=== PATIENT | male | born 1930 | race Caucasian/White ===

== ENCOUNTER → 2016-06-22 | Outpatient (REF) | payer MEDICARE, OTHER ==
[~2016-06-22] MED LIST: /WARF25TA; ACET65TA; COUM1TAB; LIPI10TA; PERC5TAB8; PREG50CA; PRIL20CA; PRIN20TA3; PRIN5TAB; ZOCO20TA
[2016-06-25 15:25] LABS: Lyme Disease IgG Ab 18 kDa Ban Present (.); Lyme Disease IgG Ab 23 kDa Ban Present (.); Lyme Disease IgG Ab 28 kDa Ban Absent (.); Lyme Disease IgG Ab 30 kDa Ban Absent (.); Lyme Disease IgG Ab 39 kDa Ban Present (.); Lyme Disease IgG Ab 41 kDa Ban Present (.); Lyme Disease IgG Ab 45 kDa Ban Present (.); Lyme Disease IgG Ab 58 kDa Ban Absent (.); Lyme Disease IgG Ab 66 kDa Ban Absent (.); Lyme Disease IgG Ab 93 kDa Ban Absent (.); Lyme Disease IgG West Blot Int Positive (.); Lyme Disease IgG/IgM Antibodie 2.73 ISR (0.00-0.90); Lyme Disease IgM Ab 23 kDa Ban Present (.); Lyme Disease IgM Ab 39 kDa Ban Present (.); Lyme Disease IgM Ab 41 kDa Ban Absent (.); Lyme Disease IgM West Blot Int Positive (.)
== END ==
LOC: M LAB REF 16:25
PROVIDERS: ATTEND Nurse Practitioner Family
DX: R52 Pain, unspecified (principal); A69.20 Lyme disease, unspecified

== ENCOUNTER → 2016-08-24 | Outpatient (REF) | payer MEDICARE, OTHER | LOC: M LAB REF 16:20 | PROVIDERS: ATTEND Nurse Practitioner Family | DX: A69.20 Lyme disease, unspecified (principal) ==

== ENCOUNTER → 2016-12-08 | Outpatient (CLI) | payer MEDICARE, OTHER ==
--- NOTE | 2016-12-08 13:21 | REP ---
Left knee five views: Comparison is 06/2007. There is a total left knee arthroplasty. The components are tightly applied and in satisfactory positions alignment. No evidence of loosening. No joint space narrowing. No effusion. Mineralization is normal. No unusual calcifications or foreign bodies. Impression: Arthroplasty. Otherwise, negative left knee. Signed by Adi Rolon MD 12/08/2016 12:07 P
== END ==
LOC: M WUC 11:11
PROVIDERS: ATTEND Nurse Practitioner Family
DX: M25.562 Pain in left knee (principal); Z96.652 Presence of left artificial knee joint

== ENCOUNTER → 2017-09-13 | Outpatient (CLI) | payer MEDICARE, OTHER ==
[2017-09-13 13:07] LABS: BLOOD UREA NITROGEN 20 MG/DL (7-18)
[2017-09-13 13:07] LABS: CREATININE FOR GFR 1.33 MG/DL (0.70-1.30); GLOMERULAR FILTRATION RATE 54.4 (>35)
== END ==
LOC: M LAB 11:26
DX: R10.9 Unspecified abdominal pain (principal)
CPT/HCPCS: 82565

== ENCOUNTER → 2017-09-14 | Outpatient (CLI) | payer MEDICARE, OTHER ==
[~2017-09-14] MED LIST changes: -/WARF25TA; -ACET65TA; -COUM1TAB; +GASTROGRAFIN SOLUTION 30ML (Q9963) As Ordered; +ISOVUE-370 76% 100ML VIAL (Q9967) As Ordered; -LIPI10TA; -PERC5TAB8; -PREG50CA; -PRIL20CA; -PRIN20TA3; -PRIN5TAB; -ZOCO20TA
== END ==
LOC: M RAD 15:34
DX: R10.9 Unspecified abdominal pain (principal); K43.2 Incisional hernia without obstruction or gangrene; K57.30 Diverticulosis of large intestine without perforation or abscess without bleeding; K40.20 Bilateral inguinal hernia, without obstruction or gangrene, not specified as recurrent
CPT/HCPCS: Q9963

== ENCOUNTER → 2018-03-19 | Outpatient (REF) | payer MEDICARE, OTHER ==
[2018-03-20 13:00] LABS: FERRITIN 10 NG/ML (26-388); IRON (FE) 31 UG/DL (65-175); PERCENT SATURATION 6.5 % (19.7-50.0); TOTAL IRON BINDING CAPACITY 474 UG/DL (250-450)
[2018-03-20 13:13] LABS: VITAMIN B12 LEVEL 369 PG/ML
[2018-03-20 13:15] LABS: FOLATE 12.6 NG/ML
== END ==
LOC: M LAB REF 12:29
DX: D64.9 Anemia, unspecified (principal)
CPT/HCPCS: 82746

== ENCOUNTER 2018-05-04 10:44 | Emergency (ER) | payer MEDICARE, OTHER ==
[~2018-05-04] VITALS: Ht 160 cm; Wt 76.4 kg
[~2018-05-04 10:44] MED LIST changes: +/WARF25TA; +ACET65TA; +COUM1TAB; -GASTROGRAFIN SOLUTION 30ML (Q9963) As Ordered; -ISOVUE-370 76% 100ML VIAL (Q9967) As Ordered; +LIPI10TA; +PERC5TAB8; +PREG50CA; +PRIL20CA; +PRIN20TA3; +PRIN5TAB; +ZOCO20TA
[2018-05-04] MEDS ORDERED: ASPI1TAB PO (11:08)
[2018-05-04] MEDS ORDERED: GLIP10TA6 PO (11:08)
[2018-05-04] MEDS ORDERED: LOSA25TA14 PO (11:08)
[2018-05-04] MEDS ORDERED: FERR1TAB8 PO (11:08)
[2018-05-04] MEDS ORDERED: SERT25TA PO (11:08)
--- NOTE | 2018-05-04 12:05 | REP ---
LEFT FEMUR: Four views. HISTORY: Pain after fall. FINDINGS: Four views of the left femur are obtained. There is old post-traumatic deformity in the femoral neck and intertrochanteric region of the proximal femur on the left. Vascular calcification is observed. 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 A left knee arthroplasty is seen in good position. No acute fracture is seen. IMPRESSION: No acute fracture noted. Old post-traumatic deformity of the proximal femur. Osteoarthritis of the hip. Left knee arthroplasty. Electronically Signed by Wayne Quintero MD 05/04/2018 12:14 P
[2018-05-04 12:13] VITALS: BP 131/74
== END 2018-05-04 12:25 | disposition home or self-care (01) ==
LOC: M ED 10:44
DX: M79.652 Pain in left thigh (principal); M16.12 Unilateral primary osteoarthritis, left hip; K21.9 Gastro-esophageal reflux disease without esophagitis; Z79.899 Other long term (current) drug therapy; Z79.82 Long term (current) use of aspirin; Z88.5 Allergy status to narcotic agent

== ENCOUNTER → 2018-05-24 | Outpatient (CLI) | payer MEDICARE, OTHER ==
[~2018-05-24] MED LIST changes: +ASPI1TAB PO; +FERR1TAB8 PO; +GLIP10TA6 PO; +LOSA25TA14 PO; +SERT25TA PO
--- NOTE | 2018-05-24 12:49 | REP ---
MRI LEFT FEMUR: Multiple sequences obtained in the axial, coronal, and sagittal planes without the use of intravenous contrast. Metallic prosthesis at the left knee causes blooming artifact which obscures the very distal end of the femur and limits its evaluation. However, the more proximal femoral shaft as well as the proximal end of the left femur demonstrates normal marrow signal. There is no bone marrow edema or occult fracture. Soft tissues of the thigh demonstrate no abnormal signal or fluid collection. There does not appear to be a significant joint effusion at the hip. IMPRESSION: Essentially unremarkable MRI left femur with no evidence of occult fracture. Metallic knee prosthesis limits evaluation of the distal end of the left femur. Electronically Signed by Adi Workman MD 05/24/2018 03:49 P
== END ==
LOC: M RAD 09:53
PROVIDERS: ATTEND Orthopaedic Surgery
DX: M79.652 Pain in left thigh (principal)

== ENCOUNTER → 2018-05-25 | Outpatient (CLI) | payer MEDICARE, OTHER ==
--- NOTE | 2018-05-25 13:37 | REP ---
Three-phase bone scan of the knees and lower extremities: History: Pain in the left thigh. Status post left knee arthroplasty in April 2008. Technique: 22.0 mCi technetium 99m MDP is injected and standard three-phase images are acquired. Scintigraphic findings: Anterior and posterior flow study is normal. Blood pool images demonstrate photopenia related to the left knee arthroplasty. There is early uptake in the medial compartment right knee consistent with less osteoarthritis. Delayed scan images demonstrate expected prosthetic bone interface uptake associated with the left knee arthroplasty components. Osteoarthritic uptake is seen in the right knee particularly medially but also in the patellofemoral and lateral compartments. The osteoarthritic uptake is more pronounced today than it was on September 07, 2009 prior study. The bone prosthetic interface uptake is less pronounced in the left knee. Delayed images of the proximal thighs and hips show mild arthritic uptake in the hips bilaterally, right a little more prominently than left. Impression: No acute abnormality. Arthroplasty prosthetic component associated uptake again noted in the left knee. Osteoarthritic uptake medial compartment right knee. Minimal arthritic uptake in the hips. Electronically Signed by Wayne Quintero MD 05/25/2018 01:43 P
== END ==
LOC: M RAD 08:06
PROVIDERS: ATTEND Orthopaedic Surgery
DX: M79.652 Pain in left thigh (principal); Z96.652 Presence of left artificial knee joint
CPT/HCPCS: 78315; A9503

== ENCOUNTER → 2018-06-13 | Outpatient (REF) | payer MEDICARE, OTHER ==
[2018-06-13 12:56] LABS: BASO % 0.3 % (0.0-1.0); EOS # 0.1 10^3/uL (0.0-0.50); EOS % 1.3 % (0.0-3.0); HEMATOCRIT 41.8 % (42.0-52.0); HEMOGLOBIN 13.2 g/dl (13.5-17.5); LYMPH # 1.5 10^3/uL (1.5-4.5); LYMPH % 21.6 % (24.0-44.0); MEAN CORPUSCULAR HEMOGLOBIN 26.3 pg (27.0-33.0); MEAN CORPUSCULAR HGB CONC 31.6 g/dl (32.0-36.5); MEAN CORPUSCULAR VOLUME 83.4 fl (80.0-96.0); MONO # 0.4 10^3/uL (0.0-0.8); MONO % 5.4 % (0.0-5.0); NEUTROPHILS # 4.8 10^3/uL (1.8-7.7); NEUTROPHILS % 70.2 % (36.0-66.0); PLATELET COUNT, AUTOMATED 201 10^3/uL (150-450); RED BLOOD COUNT 5.01 10^6/uL (4.30-6.10); WHITE BLOOD COUNT 6.8 10^3/uL (4.0-10.0)
[2018-06-13 14:09] LABS: ERYTHROCYTE SEDIMENTATION RATE 30 mm/hr (0-30)
== END ==
LOC: M LABDRAW1 10:19
PROVIDERS: ATTEND Orthopaedic Surgery
DX: Z96.652 Presence of left artificial knee joint (principal)

== ENCOUNTER → 2018-07-06 | Outpatient (CLI) | payer MEDICARE, OTHER ==
--- NOTE | 2018-07-06 12:29 | REP ---
MRI LUMBAR SPINE WITHOUT CONTRAST: HISTORY: Back pain. A rudimentary disc is present at the S1-2 level. Decreased signal intensity on T2-weighted images is present in the T11-12 through L5-S1 intervertebral discs. The discs are decreased in height. These findings are consistent with disc degeneration. A diffuse disc bulge is present at the L1-2 level. There is minimal compression of the thecal sac. There is hypertrophy of the posterior articulating facets. The L1 nerves exit the neural foramina without compression. A diffuse disc bulge is present at the L2-3 level. There is hypertrophy of the ligamenta flava and posterior articulating facets. These findings produce mild central canal stenosis. The L2 nerves exit the neural foramina without compression. A diffuse disc bulge and small left paracentral disc protrusion are present at the L3-4 level. There is hypertrophy of the ligamenta flava and posterior articulating facets. These findings produce mild central canal stenosis. There is compression of the left L3 nerve in the neural foramen. The right L3 nerve exits the neural foramen without compression. A diffuse disc bulge is present at the L4-5 level. There is hypertrophy of the ligamenta flava and posterior articulating facets. These findings produce mild central canal stenosis. There is compression of the right L4 nerve in the neural foramen. The left L4 nerve exits the neural foramen without compression. A diffuse disc bulge and small central disc protrusion are present at the L5-S1 level. There is minimal compression of the thecal sac. There is hypertrophy of the posterior articulating facets. There is compression of the right L5 nerve in the neural foramen. The conus medullaris is normal in appearance terminating at the level of the T12-L1 intervertebral disc. Normal signal intensity is present in the lumbar vertebral bodies. There is scoliosis convex to the right. IMPRESSION: 1. Diffuse disc bulge at the L1-2 level with minimal thecal sac compression. 2. Mild central canal stenosis at the L2-3 and L4-5 levels secondary to disc bulge, ligamentous and facet hypertrophy. There is compression of the right L4 nerve in the neural foramen. 3. Mild central canal stenosis at the L3-4 level secondary to disc bulge, disc protrusion, ligamentous and facet hypertrophy. There is compression of the left L3 nerve in the neural foramen. 4. Diffuse disc bulge and small central disc protrusion at the L5-S1 level with minimal thecal sac compression. There is compression of the right L5 nerve in the neural foramen. Electronically Signed by Damion Irvin MD 07/06/2018 12:37 P
== END ==
LOC: M RAD 11:05
PROVIDERS: ATTEND Orthopaedic Surgery
DX: M51.26 Other intervertebral disc displacement, lumbar region (principal); M48.061 Spinal stenosis, lumbar region without neurogenic claudication

== ENCOUNTER → 2018-07-27 | Outpatient (REF) | payer MEDICARE, OTHER ==
[~2018-07-27] MED LIST changes: -/WARF25TA; -ASPI1TAB PO; +ASPI81TA26 PO; +COUM1TAB18; -SERT25TA PO; +SERT25TA85 PO
[2018-07-27 18:15] LABS: INR 0.98; PROTHROMBIN TIME 13.1 SECONDS (12.1-14.4)
[2018-07-27 18:16] LABS: PARTIAL THROMBOPLASTIN TIME 29.2 SECONDS (25.4-37.6)
== END ==
LOC: M LABDRAW1 16:09
PROVIDERS: ATTEND Physical Medicine & Rehabilitation
DX: M47.896 Other spondylosis, lumbar region (principal); M48.061 Spinal stenosis, lumbar region without neurogenic claudication

== ENCOUNTER → 2019-09-06 | Outpatient (CLI) | payer MEDICARE, OTHER | LOC: M LABSMTC 13:16 | PROVIDERS: ATTEND Family Medicine | DX: Z11.59 Encounter for screening for other viral diseases (principal) | CPT/HCPCS: C9803; U0003 ==

== ENCOUNTER → 2019-09-26 | Outpatient (REF) | payer MEDICARE, OTHER ==
[2019-09-28 08:09] LABS: LDL DIRECT 105 mg/dL (0-99)
== END ==
LOC: M LAB REF 16:53
PROVIDERS: ATTEND Internal Medicine
DX: E78.1 Pure hyperglyceridemia (principal); E78.00 Pure hypercholesterolemia, unspecified

== ENCOUNTER 2020-05-29 19:54 | Inpatient (IN) | payer MEDICARE, OTHER ==
[~2020-05-29] VITALS: Ht 157.5 cm; Wt 80.9 kg
--- NOTE | 2020-05-29 21:03 | REPVR ---
PROCEDURE INFORMATION: Exam: CT Head Without Contrast Exam date and time: 05/29/2020 8:56 PM Age: 89 years old Clinical indication: Injury or trauma; Fall; Blunt trauma (contusions or hematomas); Consciousness not specified TECHNIQUE: Imaging protocol: Computed tomography of the head without contrast. Radiation optimization: All CT scans at this facility use at least one of these dose optimization techniques: automated exposure control; mA and/or kV adjustment per patient size (includes targeted exams where dose is matched to clinical indication); or iterative reconstruction. COMPARISON: No relevant prior studies available. FINDINGS: Brain: There are global involutional changes of the brain which are in keeping with the patient's age. Periventricular hypodensities are nonspecific but most likely reflect chronic microvascular ischemic disease. There is no evidence of intracranial hemorrhage. No abnormal extra-axial fluid collections are identified. No mass effect or midline shift is seen. Workman-white differentiation is preserved throughout. Cerebral ventricles: No ventriculomegaly. Bones/joints: Unremarkable. No acute fracture. Paranasal sinuses: The visualized sinuses are unremarkable. Mastoid air cells: There is no mastoid effusion detected. Vasculature: Atherosclerotic vascular disease is noted at the level of the skull base. Soft tissues: Unremarkable. IMPRESSION: 1. No acute intracranial hemorrhage, mass or midline shift. 2. Involutional changes of the brain in keeping with the patient's age, with findings of chronic microvascular ischemic disease. Electronically signed by: Estefania Garcia On 05/29/2020 21:02:36 PM
--- NOTE | 2020-05-29 21:04 | REPVR ---
PROCEDURE INFORMATION: Exam: XR Left Hip with Pelvis when Performed Exam date and time: 05/29/2020 8:44 PM Age: 89 years old Clinical indication: Other: Trauma TECHNIQUE: Imaging protocol: XR Left hip with pelvis when performed. Views: 2 or 3 views. COMPARISON: CT ABD PELVIS W/O FOL BY WIT 09/14/2017 5:00 PM ; left femur radiograph 05/04/2018. FINDINGS: Bones/joints: There is an acute nondisplaced fracture of the left femoral neck. There is a bony excrescence emanating from the medial aspect of the left femoral neck, unchanged compared to a prior femur radiograph performed on 05/04/2018. This is likely secondary to an osteochondroma or the sequelae of old trauma. Mild osteoarthritis of the left hip joint. Severe osteoarthritis of the right hip joint. Degenerative spondylosis of the lumbar spine. The sacroiliac joints and pubic symphysis are intact. Bone density is normal. Soft tissues: Unremarkable. IMPRESSION: 1. Acute nondisplaced fracture of the left femoral neck. 2. Bone excrescence at the medial aspect of the left femoral neck, likely osteochondroma (versus the sequelae of old trauma). Electronically signed by: Jarrell He On 05/29/2020 21:04:53 PM
--- NOTE | 2020-05-29 21:08 | REPVR ---
PROCEDURE INFORMATION: Exam: CT Cervical Spine Without Contrast Exam date and time: 05/29/2020 8:56 PM Age: 89 years old Clinical indication: Injury or trauma; Fall; Blunt trauma TECHNIQUE: Imaging protocol: Computed tomography images of the cervical spine without contrast. Radiation optimization: All CT scans at this facility use at least one of these dose optimization techniques: automated exposure control; mA and/or kV adjustment per patient size (includes targeted exams where dose is matched to clinical indication); or iterative reconstruction. COMPARISON: No relevant prior studies available. FINDINGS: Bones/joints: No anterior wedging deformity. No acute lucent fracture lines visualized. No destructive osseous lesions are seen. There is slight anterolisthesis at C4-C5 and C7-T1. There is diffuse cervical facet arthropathy. Spondylitic changes are most prominent at the C3-C4 through C6-C7 levels. Discs/Spinal canal/Neural foramina: No severe central canal stenosis demonstrated by CT. Neural foraminal stenosis is seen on the right at C2-C3 and C3-C4, eccentric to the left at C4-C5 and C5-C6, bilaterally at C6-C7. Lungs: Lung apices are normal. IMPRESSION: 1. No acute cervical spinal injury demonstrated by CT. 2. Degenerative changes of the cervical spine, as above. Electronically signed by: Estefania Garcia On 05/29/2020 21:07:50 PM
--- NOTE | 2020-05-29 21:10 | REPVR ---
PROCEDURE INFORMATION: Exam: XR Left Femur Exam date and time: 05/29/2020 8:44 PM Age: 89 years old Clinical indication: Other: Trauma TECHNIQUE: Imaging protocol: XR Left femur. Views: 2 views. COMPARISON: MRI FEMUR WITHOUT CONTRAST 05/24/2018 10:18 AM FINDINGS: Bones/joints: Nondisplaced impacted fracture of the left femoral neck. There is a bony excrescence at the medial aspect of the left femoral neck, likely an osteochondroma. There is mild osteoarthritis of the left hip joint. A left total knee prosthesis is present without evidence of instrumentation failure. The tip of the tibial stem is not visualized. Soft tissues: Unremarkable. IMPRESSION: 1. Nondisplaced impacted fracture of the left femoral neck. 2. Unremarkable left total knee arthroplasty. Electronically signed by: Jarrell He On 05/29/2020 21:09:43 PM
[2020-05-29] MEDS ORDERED: ACETAMINOPHEN *IV* 1,000 MG in IV 1 EA IV ONE (21:30)
--- NOTE | 2020-05-29 21:48 | REPVR ---
PROCEDURE INFORMATION: Exam: XR Chest, 1 View Exam date and time: 05/29/2020 9:36 PM Age: 89 years old Clinical indication: Chest pain; Additional info: Preop TECHNIQUE: Imaging protocol: XR of the chest Views: 1 view. COMPARISON: No relevant prior studies available. FINDINGS: Lungs: Unremarkable. No consolidation. Pleural spaces: Unremarkable. No pleural effusion. No pneumothorax. Heart/Mediastinum: Unremarkable. No cardiomegaly. Bones/joints: No acute bone or joint abnormality. IMPRESSION: No acute findings. Electronically signed by: Jarrell He On 05/29/2020 21:48:02 PM
[2020-05-29 22:03] LABS: BASO % 0.2 % (0.0-1.0); EOS # 0.1 10^3/uL (0.0-0.5); EOS % 1.1 % (0.0-3.0); HEMOGLOBIN 11.9 g/dl (13.5-17.5); LYMPH # 1.9 10^3/uL (1.5-5.0); LYMPH % 21.1 % (24.0-44.0); MEAN CORPUSCULAR HEMOGLOBIN 24.5 pg (27.0-33.0); MEAN CORPUSCULAR HGB CONC 30.5 g/dl (32.0-36.5); MEAN CORPUSCULAR VOLUME 80.4 fl (80.0-96.0); MONO # 0.6 10^3/uL (0.0-0.8); MONO % 6.1 % (0.0-5.0); NEUTROPHILS # 6.4 10^3/uL (1.5-8.5); NEUTROPHILS % 70.3 % (36.0-66.0); PLATELET COUNT, AUTOMATED 183 10^3/uL (150-450); RED BLOOD COUNT 4.85 10^6/uL (4.30-6.10); WHITE BLOOD COUNT 9.1 10^3/uL (4.0-10.0)
[2020-05-29 22:29] LABS: ALBUMIN 3.5 GM/DL (3.2-5.2); ALT/SGPT 69 U/L (12-78); BILIRUBIN,TOTAL 0.3 MG/DL (0.2-1.0); BLOOD UREA NITROGEN 16 MG/DL (7-18); CALCIUM LEVEL 8.6 MG/DL (8.8-10.2); CARBON DIOXIDE LEVEL 28 MEQ/L (21-32); CHLORIDE LEVEL 103 MEQ/L (98-107); CK-MB VALUE MASS 4.4 NG/ML (<3.6); CPK CREATINE PHOSPHOKINASE 112 U/L (39-308); CREATININE FOR GFR 1.28 MG/DL (0.70-1.30); GLOMERULAR FILTRATION RATE 56.6 (>35); GLUCOSE, FASTING 164 MG/DL (70-100); MB/CK RELATIVE INDEX 3.93 (< OR =4); POTASSIUM SERUM 4.2 MEQ/L (3.5-5.1); SODIUM LEVEL 140 MEQ/L (136-145); TOTAL PROTEIN 6.9 GM/DL (6.4-8.2); TROPONIN I < 0.02 NG/ML (< 0.10)
[2020-05-30 00:14] LABS: RSV AMPLIFICATION NEGATIVE (NEGATIVE)
[2020-05-30] MEDS ORDERED: GLIP10TA18 PO (00:14)
[2020-05-30] MEDS ORDERED: OMEP-218 PO (00:14)
[2020-05-30] MEDS ORDERED: LISI20TA33 PO (00:14)
--- NOTE | 2020-05-30 02:18 | REPVR ---
PROCEDURE INFORMATION: Exam: CT Left Lower Extremity Without Contrast, Hip Exam date and time: 05/30/2020 1:37 AM Age: 89 years old Clinical indication: Pain; Hip; Left; Additional info: Suspicious lesion, known fracture, request thin slices TECHNIQUE: Imaging protocol: CT of the Left lower extremity without contrast was performed. Exam focused on the hip. Radiation optimization: All CT scans at this facility use at least one of these dose optimization techniques: automated exposure control; mA and/or kV adjustment per patient size (includes targeted exams where dose is matched to clinical indication); or iterative reconstruction. COMPARISON: CR Hip,AP,LAT to include Pelvis 05/29/2020 8:28 PM FINDINGS: Bones/joints: There is some proliferative changes about the posterior aspect of the left femoral neck. There is a nondisplaced fracture through the femoral neck extending to the subcapital region anteriorly and through the transcervical to basicervical region posteriorly. There is some impaction in the subcapital region laterally. Soft tissues: Slight subcutaneous infiltration lateral to the proximal left femur. Bowel: Fat filled left inguinal hernia with bowel extending just into the orifice. IMPRESSION: 1. Osseous proliferative changes about the left femoral neck with a nondisplaced left femoral neck fracture with slight impaction laterally. 2. Small fat filled left inguinal hernia. Electronically signed by: Misael Jay On 05/30/2020 02:18:45 AM
[2020-05-30] MEDS ORDERED: DEXTROSE 50% 50 ML SYRINGE IV PRN (02:45)
[2020-05-30] MEDS ORDERED: GLUCOSE 4GM CHEW TABLET PO PRN (02:45)
[2020-05-30] MEDS ORDERED: GLUCAGON INJ 1MG VIAL SC PRN (02:45)
[2020-05-30] MEDS: traMADol 50 MG TAB PO PRN ×2 (03:55→17:34)
--- NOTE | 2020-05-30 04:50 | HPEPDOC ---
General Date of Admission Date of Service: May 30, 2020 Primary Care Physician: Leesa Bardales Attending Physician: Santiago Hobbs MD Chief Complaint The patient is a 89-year-old male admitted with a reason for visit of FALL. Source: Patient Exam Limitations: Hard of hearing History of Present Illness Mr. Dejesus was carrying a stack of dishes from his dining room into his kitchen to be washed when he lost his balance and fell to his right side. During the fall he landed on his left hip and does think he might of bumped his head but he did not lose consciousness. After the fall he had significant pain in his left hip/groin. He was brought to the emergency department for further evaluation and treatment. Home Medications Scheduled Aspirin (Aspirin EC) 81 Mg Tab, 81 MG PO DAILY, (Reported) Glipizide (Glipizide ER) 10 Mg Tab.er.24, 10 MG PO DAILY, (Reported) Lisinopril (Lisinopril) 20 Mg Tablet, 20 MG PO DAILY, (Reported) Losartan Potassium (Losartan Potassium) 25 Mg Tab, 25 MG PO DAILY, (Reported) Omeprazole (Omeprazole) 20 Mg Capsule.dr, 20 MG PO DAILY, (Reported) Sertraline Hcl (Sertraline HCl) 25 Mg Tab, 25 MG PO DAILY, (Reported) Allergies Coded Allergies: morphine (Verified Adverse Reaction, Stefanie, kleber, 05/29/20) Past Medical History Medical History Obstructive sleep apnea, palliated with BiPAP 12/28 with the backup of 5 Hypertension Type 2 diabetes Depression/extended grief reaction GERD History of colon cancer Surgical History Cholecystectomy Hernia repair Colon resection 2 Left total knee arthroplasty (2007) Nasoseptoplasty Family History Significant Family History: Noncontributory (secondary to advanced age) His father of "heart problems". His mother of complications of diabetes. His son last year of a myocardial infarction. Social History * Smoker: non-smoker Alcohol: rarely (he reports one beer every 6 months) He lives in a 2 level home at present A-FIB/CHADSVASC A-FIB History Current/History of A-Fib/PAF?: No Current PO Anticoag Therapy: No Review of Systems Pulmonary: Denies: Dyspnea, Cough Cardiovascular: Denies: Chest Pain, Palpitations, Orthopnea Gastrointestinal: Denies: Nausea, Abdominal Pain, Diarrhea Hematologic: Denies: Bruising, Bleeding Excessively Musculoskeletal: Reports: Leg Pain (left hip/groin area radiating down his thigh) Psych: Reports: Mood Normal Physical Examination General Exam: Positive: Alert, Cooperative, No Acute Distress (he is laying in his ER stretcher when I enter the room. He is comfortable unless he tries to move then he has significant left hip pain) Eye Exam: Positive: PERRLA, EOMI; Negative: Sclera icteric ENT Exam: Positive: Atraumatic, Mucous membr. moist/pink, Pharynx Normal Neck Exam: Positive: Supple; Negative: Lymphadenopathy Chest Exam: Positive: Clear to auscultation, Normal air movement Heart Exam: Positive: Rate Normal, Regular Rhythm, Normal S1, Normal S2 Abdomen Exam: Positive: Normal bowel sounds, Soft; Negative: Tenderness Extremity Exam: Positive: Normal pulses, Tenderness (palpation over the left greater trochanter and along the inguinal fold.There are no bulges noted.); Negative: Cyanosis, Edema Skin Exam: Positive: Nl turgor and temperature; Negative: Breakdown, Lesion Neuro Exam: Positive: Normal Speech, Sensation Intact Psych Exam: Positive: Mental status NL, Mood NL, Oriented x 3 Vital Signs Vital Signs Date Time Temp Pulse Resp B/P (MAP) Pulse Ox O2 Delivery O2 Flow Rate FiO2 05/30/20 04:33 16 05/30/20 04:00 98.3 77 172/81 (111) 94 Laboratory Data Labs 24H Laboratory Tests 2 05/29/20 21:25: Immature Granulocyte % (Auto) 1.2, Neutrophils (%) (Auto) 70.3H, Lymphocytes (%) (Auto) 21.1L, Monocytes (%) (Auto) 6.1H, Eosinophils (%) (Auto) 1.1, Basophils (%) (Auto) 0.2, Neutrophils # (Auto) 6.4, Lymphocytes # (Auto) 1.9, Monocytes # (Auto) 0.6, Eosinophils # (Auto) 0.1, Basophils # (Auto) 0.0, Nucleated Red Blood Cells % (auto) 0.0, Anion Gap 9, Glomerular Filtration Rate 56.6, Calcium Level 8.6L, Total Bilirubin 0.3, Aspartate Amino Transf (AST/SGOT) 42H, Alanine Aminotransferase (ALT/SGPT) 69, Alkaline Phosphatase 127H, Total Creatine Kinase 112, Creatine Kinase MB 4.4H, Creatine Kinase MB Relative Index 3.93, Troponin I < 0.02, Total Protein 6.9, Albumin 3.5, Albumin/Globulin Ratio 1.0 05/29/20 23:20: Coronavirus (COVID-19)(PCR) NEGATIVE, Influenza Type A (RT-PCR) NEGATIVE, Influenza Type B (RT-PCR) NEGATIVE, Respiratory Syncytial Virus (PCR) NEGATIVE CBC/BMP Laboratory Tests 05/29/20 21:25 Problems (1) Closed left hip fracture Problem Specific Plan: Consult Specialist Problem Text: I spoke directly with Dr. Rodriguez, the on-call orthopedist. He is concerned that this fracture may be a pathalogic fracture. Some components of it do not look right to him on the x-ray. He is concerned that, with Mr. Dejesus's history of colon cancer, that this may represent a metastasis. He is understandably cautious about taking him to the OR where he may be accidentally spreading metastatic (or even primary) cancer. He is also concerned that Mr. Dejesus may not tolerate a two step procedure well; that is he takes him to the OR for a bone biopsy, then takes him back for a repair if the pathology is ok. He was suggesting a metabolic evaluation for occult malignancy as well as imaging to include a total body bone scan and CT of the chest, abdomen and pelvis. We may also ask interventional radiology to see if the can obtain a sample of the lesion for pathologic diagnosis. He will follow along, and if it all checks out he will do the needed fixation. In the mean time we need to keep Mr Dejesus as comfortable as we can. He has adverse reaction of bradycardia listed to morphine. I discussed this with pharmacy and we decided to use tramadol first as the pharmacore is quite different from morphine and there is not likely much cross reactivity. If that is not able to control his pain adequately hydrocodone or oxycodone may be the next best options as they have some functional groups that are quite different from morphine too. Update: I spoke with Dr. Rodriguez again later in the evening. 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 Based on this, Dr. Rodriguez withdrew his suggestion that we do CT chest/abdomen/pelvis or consult IR at this time. We will proceed with serum based testing to try to rule out a recurrence of his colon cancer as best as we can. If we don't find anything of concern, he will plan to take the patient to the OR on 05/31. (2) History of colon cancer Problem Text: He has a remote history of colon cancer. It seems that this was treated with with resection and not with chemotherapy or radiation, however, I'm not sure how reliable the patient's recall of this critical portion of his history is at this moment in time. (3) DENISE treated with BiPAP Status: Chronic Problem Text: We will continue his home BiPAP settings. It is important to use this when he sleeps even during the day because we're giving him potentially sedating pain medications which could also decrease his respiratory drive. Anesthesia should be aware that he has this diagnosis. (4) DMII (diabetes mellitus, type 2) Status: Chronic Problem Text: We will hold his home medication of glipizide and do Accu-Cheks before meals and at bedtime with an insulin sliding scale while in the hospital. (5) HTN (hypertension) Status: Chronic Problem Text: His blood pressure currently well controlled. I did note that his home medication list includes both losartan and lisinopril. When we checked the external history lisinopril was not present. I think it's inclusion on his home medication list is probably an error. I have only continued him on losartan for now. If his blood pressure becomes elevated we may want to consider whether he needs an increase of his losartan dose or possibly to add the lisinopril back in. 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 No treatment is needed at this time. We'll monitor. If his hemoglobin starts dropping he may have bleeding around the fracture site and we may need to consider doing something different at that point in time. (7) GERD (gastroesophageal reflux disease) Status: Chronic Problem Text: Continue his current home medications, monitor. (8) Atypical depressive disorder Problem Text: He reports the sertraline was started after the of his son a year ago, but that his and physician thought it wouldn't hurt him and he should continue it. I'm not clear on whether reaction carries diagnoses of depression or whether this is an extended grief reaction. Regardless I will order his current home medications and he can continue to follow up on an outpatient basis. Plan / VTE VTE Prophylaxis Ordered?: Yes VTE Exclusion Pharmacological: Other (potential for one or more procedures in the very near future) Plan Advanced Directives: Health Care Proxy (HCP) (he identifies his Veena Dejesus as his alternate decision maker should he not be able to make his own medical decisions. He expressed a wish to be DNR on admission, however, when we got to filling out the MOLST form he decided he would wait to formalize that until he could talk with his and son.) Santiago Hobbs MD May 30, 2020 04:50
[2020-05-30 05:00] VITALS: BP 133/71
[2020-05-30] MEDS: HumaLOG INSULIN (NovoLOG) PER UNIT SC SCH ×4 (09:03→21:00)
[2020-05-30] MEDS: LOSARTAN 25 MG TAB PO SCH (09:04)
[2020-05-30] MEDS: DOCUSATE SODIUM 100MG CAPSULE PO SCH ×2 (09:04→21:04)
[2020-05-30] MEDS: SERTRALINE HCL 25 MG TABLET PO SCH (09:04)
[2020-05-30] MEDS: OMEPRAZOLE 20 MG CAP PO SCH (09:04)
[2020-05-30 09:28] LABS: BASO % 0.4 % (0.0-1.0); EOS # 0.2 10^3/uL (0.0-0.5); EOS % 2.1 % (0.0-3.0); HEMATOCRIT 37.8 % (42.0-52.0); HEMOGLOBIN 11.9 g/dl (13.5-17.5); LYMPH # 1.9 10^3/uL (1.5-5.0); LYMPH % 21.2 % (24.0-44.0); MEAN CORPUSCULAR HEMOGLOBIN 24.9 pg (27.0-33.0); MEAN CORPUSCULAR HGB CONC 31.5 g/dl (32.0-36.5); MEAN CORPUSCULAR VOLUME 79.2 fl (80.0-96.0); MONO # 0.5 10^3/uL (0.0-0.8); NEUTROPHILS # 6.2 10^3/uL (1.5-8.5); NEUTROPHILS % 69.9 % (36.0-66.0); PLATELET COUNT, AUTOMATED 176 10^3/uL (150-450); RED BLOOD COUNT 4.77 10^6/uL (4.30-6.10); WHITE BLOOD COUNT 8.9 10^3/uL (4.0-10.0)
[2020-05-30 10:13] LABS: ALBUMIN 3.4 GM/DL (3.2-5.2); BILIRUBIN,TOTAL 0.6 MG/DL (0.2-1.0); CALCIUM LEVEL 8.7 MG/DL (8.8-10.2); CREATININE FOR GFR 1.23 MG/DL (0.70-1.30); GLOMERULAR FILTRATION RATE 59.3 (>35); MAGNESIUM LEVEL 1.6 MG/DL (1.8-2.4); POTASSIUM SERUM 4.4 MEQ/L (3.5-5.1); TOTAL PROTEIN 6.8 GM/DL (6.4-8.2)
--- NOTE | 2020-05-30 12:29 | IPNPDOC ---
Text Note Date of Service The patient was seen on 05/30/20. NOTE Subjective: Patient stated that he has left hip pain, denies fever, chills, na usea, vomiting, diarrhea or dysuria. Objective: GENERAL APPEARANCE: NAD HEENT: no scleral icterus, no JVD, EOMI CARDIOVASCULAR: S1S2 LUNGS: Diminished lung sounds bilaterally ABDOMEN: soft & not tender w palpitation MUSCULOSKELETAL: no cyanosis, no swelling, pulsation intact, tenderness over left hip INTEGUMENT: no generalized pallor NEUROLOGICAL: cranial nerve function from 2-12 intact intact, follows commands, speech not dysarthric Assessment plan Mr. Dejesus was carrying a stack of dishes from his dining room into his kitchen to be washed when he lost his balance and fell to his right side. During the fall he landed on his left hip and does think he might of bumped his head but he did not lose consciousness. After the fall he had significant pain in his left hip/groin. He was brought to the emergency department for further evaluation and treatment. 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, unlikely metastases Will check CEA DENISE treated with BiPAP Continuing treatment with BiPAP overnight Type 2 diabetes Diabetes diet Insulin sliding scale Hypertension Continue home meds Anemia of chronic diseases Hemoglobin stable Follow-up with PCP in the outpatient settings Will check stool for occult blood Deconditioning Secondary to hip fracture PT/OT Depression Continue home meds GERD Continue PPI VS,Fishbone, I+O VS, Fishbone, I+O Laboratory Tests 05/29/20 21:25 05/30/20 08:53 Vital Signs Date Time Temp Pulse Resp B/P (MAP) Pulse Ox O2 Delivery O2 Flow Rate FiO2 05/30/20 09:04 134/74 05/30/20 05:00 98.1 75 18 96 Room Air I&O- Last 24 Hours up to 6 AM 05/30/20 06:00 Intake Total 400 ml Balance 400 ml MARINO MEJIAS DO May 30, 2020 12:29
[2020-05-30] MEDS ORDERED: NS 1,000 ML IV SCH (12:30)
--- NOTE | 2020-05-30 12:43 | ECGEPIP ---
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
--- NOTE | 2020-05-30 12:45 | ECGEPIP ---
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
--- NOTE | 2020-05-30 13:46 | ER ---
ER CONSULTATION DATE: 05/30/2020 TIME: 12:01 a.m. CONSULTING SERVICE: Orthopedic surgery. CONSULTING PHYSICIAN: Dusty Rodriguez MD. HISTORY OF PRESENT ILLNESS: This is an 89-year-old male who is a community ambulator with assistive devices (walker) who was washing dishes and landed on his left hip on the lexi of May 29, 2020. He was admitted to [facility] for further evaluation and treatment. Patient has a Steel Fitter 2 complete, but nondisplaced, femoral neck fracture of the left hip. Orthopedic surgery was consulted for further evaluation and treatment of the patient's fracture. Patient was admitted by the hospitalist to manage his medical comorbidities. PAST MEDICAL HISTORY: Patient has a history most notable for: 1. Lumbago. 2. Diverticulitis, colon. 3. Hypertension. 4. Sleep apnea. 5. Type 2 diabetes without complications. 6. Benign neoplasm of transverse colon. 7. Hernia. 8. Anemia. 9. Esophageal reflux. PAST SURGICAL HISTORY: Includes: 1. Colon resection secondary to cancer, according to patient. 2. Cholecystectomy. 3. Hernia repair. 4. Deviated septum correction. ALLERGIES TO MEDICATIONS: Patient denies. MEDICATIONS: Please see hospitalist note. SOCIAL HISTORY: Nondrinker, nonsmoker, not an IV drug user. PHYSICAL EXAMINATION: Patient is alert to person, time and place. LEFT LOWER EXTREMITY: Patient had presented with left hip flexion, abduction and external rotation upon presentation. He was otherwise neurovascularly intact to the left lower extremity. He had 2+ dorsalis pedis and posterior tibial arterial pulse, 5/5 motor strength to the exterior hallucis longus (EHL), flexor hallucis longus (FHL), gastroc soleus and peroneal musculature. He had sensation intact to light touch to the deep and superficial peroneal, sural, saphenous and tibial nerve distributions. RADIOGRAPHS: Patient's AP pelvis radiograph and left hip radiograph demonstrate Green 2 complete, but nondisplaced femoral neck fracture. Patient does have some atypical osseus findings on the left hip radiograph to include potential previous trauma to the left hip, potential slipped capital femoral epiphysis (SCFE) of the left hip as well as possible metastatic or other possible neoplastic process of the left hip. IMPRESSION: An 89-year-old male with a traumatic versus pathologic femoral neck fracture. PLAN: At this point in time, the patient will eventually need a closed reduction and percutaneous screw reduction of the left hip; however, I would like to get some better characterization of the patient's pathologic versus traumatic etiology of the hip fracture. At this point in time, we will obtain a left hip CT scan to identify whether this lesion looks pathologic or chronic. Previous CT scan two years prior demonstrates similar osseus structure of the left hip, so it is likely not a pathologic fracture. However, we will proceed down the pathologic workup to ensure this is not a metastatic fracture or possibly a primary bone tumor. If his left CT scan of the left hip looks unconcerning, we will proceed with closed reduction and percutaneous screw fixation of the left hip. If the CT scan does look concerning, we will likely proceed with a CT scan of the abdomen and pelvis and chest for identifying other possible metastatic disease. I did talk to the hospitalist this afternoon and hopefully the patient will be cleared for surgery on the morning of May 31, 2020.
[2020-05-30 14:00] VITALS: BP 137/74
[2020-05-30] MEDS: ACETAMINOPHEN TAB 650MG DOSE (2X325MG) PO PRN (17:34)
[2020-05-30 22:00] VITALS: BP 156/82
[2020-05-31] VITALS (8 sets, daily range): BP systolic 127–160; BP diastolic 73–96
[2020-05-31] MEDS: traMADol 50 MG TAB PO PRN ×2 (03:14→17:33)
[2020-05-31] MEDS: ceFAZolin SOD 2 GM in IV 1 EA IV ONE ×2 (06:00→11:10)
[2020-05-31 06:48] LABS: HEMATOCRIT 40.7 % (42.0-52.0); HEMOGLOBIN 12.6 g/dl (13.5-17.5); MEAN CORPUSCULAR HEMOGLOBIN 24.7 pg (27.0-33.0); MEAN CORPUSCULAR VOLUME 79.8 fl (80.0-96.0); PLATELET COUNT, AUTOMATED 160 10^3/uL (150-450); WHITE BLOOD COUNT 9.6 10^3/uL (4.0-10.0)
[2020-05-31 07:12] LABS: BLOOD UREA NITROGEN 15 MG/DL (7-18); CALCIUM LEVEL 8.6 MG/DL (8.8-10.2); CARBON DIOXIDE LEVEL 28 MEQ/L (21-32); CHLORIDE LEVEL 101 MEQ/L (98-107); CREATININE FOR GFR 1.19 MG/DL (0.70-1.30); GLOMERULAR FILTRATION RATE > 60.0 (>35); GLUCOSE, FASTING 168 MG/DL (70-100); POTASSIUM SERUM 4.4 MEQ/L (3.5-5.1); SODIUM LEVEL 137 MEQ/L (136-145)
[2020-05-31] MEDS: HumaLOG INSULIN (NovoLOG) PER UNIT SC SCH ×4 (07:29→20:47)
[2020-05-31] MEDS: DOCUSATE SODIUM 100MG CAPSULE PO SCH ×2 (08:46→20:46)
[2020-05-31] MEDS: LOSARTAN 25 MG TAB PO SCH (08:47)
[2020-05-31] MEDS: SERTRALINE HCL 25 MG TABLET PO SCH (08:47)
[2020-05-31] MEDS: OMEPRAZOLE 20 MG CAP PO SCH (08:47)
[2020-05-31] MEDS ORDERED: propofoL 200 MG/20 ML VIAL As Ordered ONE (11:16)
[2020-05-31] MEDS ORDERED: KETAMINE HCL 200 MG/20 ML VIAL As Ordered ONE (11:16)
[2020-05-31] MEDS ORDERED: MIDAZOLAM INJ 2MG/2ML VIAL (J2250 PER 1MG) As Ordered ONE (11:16)
[2020-05-31] MEDS ORDERED: BUPIVACAINE HCL 0.25% 30ML VIAL As Ordered ONE (11:29)
[2020-05-31] MEDS ORDERED: LIDOCAINE 1% SDV 30ML VIAL As Ordered ONE (11:29)
--- NOTE | 2020-05-31 11:38 | IPNPDOC ---
Text Note Date of Service The patient was seen on 05/31/20. NOTE Subjective: No any acute events overnight Objective: GENERAL APPEARANCE: NAD HEENT: no scleral icterus, no JVD, EOMI CARDIOVASCULAR: S1S2 LUNGS: Diminished lung sounds bilaterally ABDOMEN: soft & not tender w palpitation MUSCULOSKELETAL: no cyanosis, no swelling, pulsation intact, tenderness over left hip INTEGUMENT: no generalized pallor NEUROLOGICAL: cranial nerve function from 2-12 intact intact, follows commands, speech not dysarthric Assessment plan Mr. Dejesus was carrying a stack of dishes from his dining room into his kitchen to be washed when he lost his balance and fell to his right side. During the fall he landed on his left hip and does think he might of bumped his head but he did not lose consciousness. After the fall he had significant pain in his left hip/groin. He was brought to the emergency department for further evaluation and treatment. 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, unlikely metastases Will check CEA DENISE treated with BiPAP Continuing treatment with BiPAP overnight Type 2 diabetes Diabetes diet Insulin sliding scale Hypertension Continue home meds Anemia of chronic diseases Hemoglobin stable Follow-up with PCP in the outpatient settings Will check stool for occult blood Deconditioning Secondary to hip fracture PT/OT Depression Continue home meds GERD Continue PPI VS,Fishbone, I+O VS, Fishbone, I+O Laboratory Tests 05/31/20 05:50 Vital Signs Date Time Temp Pulse Resp B/P (MAP) Pulse Ox O2 Delivery O2 Flow Rate FiO2 05/31/20 08:47 150/74 05/31/20 06:00 97.2 81 18 94 Room Air I&O- Last 24 Hours up to 6 AM 05/31/20 06:00 Intake Total 810 ml Output Total 1300 ml Balance -490 ml MARINO MEJIAS DO May 31, 2020 11:37
[2020-05-31] MEDS ORDERED: VASOPRESSIN INJ 20 UNITS/ML VIAL As Ordered ONE (12:18)
[2020-05-31] MEDS ORDERED: PHENYLephrine 500MCG 5ML (100MCG/ML) SYRINGE As Ordered ONE (12:18)
[2020-05-31] MEDS ORDERED: ePHEDrine SULFATE 25 MG/5 ML(5MG/ML) SYRINGE As Ordered ONE (12:18)
[2020-05-31] MEDS ORDERED: oxyCODONE 5MG TAB PO PRN (13:30)
[2020-05-31] MEDS ORDERED: METOCLOPRAMIDE INJ 10MG/2ML VIAL (J2765 PER 1) IV PRN (13:30)
[2020-05-31] MEDS ORDERED: LR 1,000 ML IV SCH (13:30)
[2020-05-31] MEDS ORDERED: HYDROMORPHONE HCL 0.5 MG/ 0.5 ML SYRINGE (J1170 PER 1) IV PRN (13:30)
[2020-05-31] MEDS ORDERED: fentaNYL 100 MCG/2 ML INJECTION (J3010) IV PRN (13:30)
[2020-05-31] MEDS ORDERED: ONDANSETRON 4MG/2ML VIAL IV PRN (13:30)
--- NOTE | 2020-05-31 14:19 | REP ---
INDICATION: HIP FX IN OR. COMPARISON: 05/29/2020. TECHNIQUE: Two AP views of the pelvis performed. FINDINGS: There is placement of 3 metallic screws in the proximal left femur for the recently noted fracture at that location. The osseous structures are well-aligned. There are moderate degenerative changes of the right hip joint with joint space narrowing and subchondral sclerosis as well as spurring. Multiple metallic armando overlie the pelvis. IMPRESSION: Interval placement of metallic internal fixation in the proximal left femur for a fracture at that location. There is good alignment. <Electronically signed by Adi Workman > 05/31/20 0930
[2020-05-31] MEDS: ACETAMINOPHEN TAB 650MG DOSE (2X325MG) PO PRN (17:32)
[2020-06-01 02:00] VITALS: BP 138/76
[2020-06-01 06:00] VITALS: BP 155/80
[2020-06-01] MEDS: ACETAMINOPHEN TAB 650MG DOSE (2X325MG) PO PRN ×3 (06:37→21:34)
[2020-06-01] MEDS: traMADol 50 MG TAB PO PRN (06:37)
[2020-06-01 07:41] LABS: HEMATOCRIT 35.6 % (42.0-52.0); HEMOGLOBIN 11.1 g/dl (13.5-17.5); MEAN CORPUSCULAR HEMOGLOBIN 24.8 pg (27.0-33.0); MEAN CORPUSCULAR HGB CONC 31.2 g/dl (32.0-36.5); MEAN CORPUSCULAR VOLUME 79.5 fl (80.0-96.0); PLATELET COUNT, AUTOMATED 159 10^3/uL (150-450); RED BLOOD COUNT 4.48 10^6/uL (4.30-6.10); WHITE BLOOD COUNT 9.4 10^3/uL (4.0-10.0)
[2020-06-01 08:00] LABS: BLOOD UREA NITROGEN 19 MG/DL (7-18); CALCIUM LEVEL 8.4 MG/DL (8.8-10.2); CARBON DIOXIDE LEVEL 28 MEQ/L (21-32); CHLORIDE LEVEL 101 MEQ/L (98-107); CREATININE FOR GFR 1.21 MG/DL (0.70-1.30); GLOMERULAR FILTRATION RATE > 60.0 (>35); GLUCOSE, FASTING 156 MG/DL (70-100); POTASSIUM SERUM 4.3 MEQ/L (3.5-5.1); SODIUM LEVEL 136 MEQ/L (136-145)
[2020-06-01] MEDS: DOCUSATE SODIUM 100MG CAPSULE PO SCH ×2 (08:11→21:33)
[2020-06-01] MEDS: HumaLOG INSULIN (NovoLOG) PER UNIT SC SCH ×4 (08:11→21:00)
[2020-06-01] MEDS: LOSARTAN 25 MG TAB PO SCH (08:12)
[2020-06-01] MEDS: SERTRALINE HCL 25 MG TABLET PO SCH (08:12)
[2020-06-01] MEDS: OMEPRAZOLE 20 MG CAP PO SCH (08:12)
[2020-06-01 14:00] VITALS: BP 151/81
--- NOTE | 2020-06-01 14:49 | IPNPDOC ---
Text Note Date of Service The patient was seen on 06/01/20. NOTE Subjective: Patient denied fever, chills, nausea, dysuria. He stated that he f eels better today Objective: GENERAL APPEARANCE: NAD HEENT: no scleral icterus, no JVD, EOMI CARDIOVASCULAR: S1S2 LUNGS: Diminished lung sounds bilaterally ABDOMEN: soft & not tender w palpitation MUSCULOSKELETAL: no cyanosis, no swelling, pulsation intact, tenderness over left hip INTEGUMENT: no generalized pallor NEUROLOGICAL: cranial nerve function from 2-12 intact intact, follows commands, speech not dysarthric Assessment plan Mr. Dejesus was carrying a stack of dishes from his dining room into his kitchen to be washed when he lost his balance and fell to his right side. During the fall he landed on his left hip and does think he might of bumped his head but he did not lose consciousness. After the fall he had significant pain in his left hip/groin. He was brought to the emergency department for further evaluation and treatment. 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, unlikely metastases CEA within normal limit DENISE treated with BiPAP Continuing treatment with BiPAP overnight Type 2 diabetes Diabetes diet Insulin sliding scale Hypertension Continue home meds Anemia of chronic diseases Hemoglobin stable Follow-up with PCP in the outpatient settings Will check stool for occult blood Deconditioning Secondary to hip fracture PT/OT Depression Continue home meds GERD Continue PPI VS,Fishbone, I+O VS, Fishbone, I+O Laboratory Tests 06/01/20 07:05 Vital Signs Date Time Temp Pulse Resp B/P (MAP) Pulse Ox O2 Delivery O2 Flow Rate FiO2 06/01/20 08:12 155/80 06/01/20 07:20 18 06/01/20 06:00 98.9 84 93 Room Air 05/31/20 15:00 2.0 I&O- Last 24 Hours up to 6 AM 06/01/20 06:00 Intake Total 2190 ml Output Total 725 ml Balance 1465 ml MARINO MEJIAS DO Jun 01, 2020 14:49
--- NOTE | 2020-06-01 15:59 | REP ---
INDICATION: ? met in hip, h/o colon Ca; possible mets. COMPARISON: Comparison radiographs are reviewed from 29 May 2020, comparison CT study 30 May 2020. Radiographs and CT study show evidence of an osteochondroma directed medially from the region of the lesser trochanter of the left hip with a femoral neck fracture on the left showing slightly impacted position.. TECHNIQUE: 21.5 mCi of technetium 99 M MDP is injected and 3 phase imaging of the pelvis and hips is acquired. Whole-body acquisition is acquired as well in this patient with history rule out metastasis. FINDINGS: Anterior and posterior flow study is normal. Blood pool images demonstrate increased uptake diffusely in the soft tissues about the left hip particularly laterally in the soft tissues. Delayed scan images demonstrate increased soft tissue uptake and some increased uptake in the inter trochanteric and femoral neck region on the left. No other focus of abnormal bony uptake is seen on 3 phase images. Whole-body images demonstrate arthritic uptake in each wrist and in each acromioclavicular joint. There are photopenic arthroplasty components of the left knee. Medial osteoarthritic uptake is seen in the right knee. There is uptake in bilateral kidneys. Mild degenerative spondylosis uptake is seen in the thoracic and lumbar spine and there is a dextroconvex lumbar curvature. There is no evidence to suggest skeletal metastatic disease. IMPRESSION: Mildly increased soft tissue uptake and bony uptake in the recently operated left hip. Arthritic uptake elsewhere. Status post left knee arthroplasty. No evidence to suggest skeletal metastatic disease. <Electronically signed by Mickey Quintero > 06/01/20 [id number]
--- NOTE | 2020-06-01 20:23 | REPVR ---
PROCEDURE INFORMATION: Exam: CT Head Without Contrast Exam date and time: 06/01/2020 7:19 PM Age: 89 years old Clinical indication: Injury or trauma; Fall; Blunt trauma (contusions or hematomas) TECHNIQUE: Imaging protocol: Computed tomography of the head without contrast. Radiation optimization: All CT scans at this facility use at least one of these dose optimization techniques: automated exposure control; mA and/or kV adjustment per patient size (includes targeted exams where dose is matched to clinical indication); or iterative reconstruction. COMPARISON: CT Head without contrast 05/29/2020 8:50 PM FINDINGS: Brain: There is no evidence of intracranial bleed. The ramos-white differentiation appears preserved. There is prominence of the ventricles and cerebral sulci probably the result of moderate atrophy. Communicating hydrocephalus could give an identical appearance and clinical correlation would be important. Bones/joints: There is no evidence of fracture. Paranasal sinuses: Clear paranasal sinuses. Mastoid air cells: Clear mastoid air cells. Orbital cavity: Symmetric appearing orbits. Soft tissues: There is no evidence of soft tissue swelling. Other findings: There is no evidence of significant change since 05/29/2020 exam. IMPRESSION: 1. No evidence of fracture and no evidence of bleed. 2. Enlargement of the ventricles and cerebral sulci which is probably secondary to atrophy. Communicating type hydrocephalus could not be excluded and clinical correlation would be important. Electronically signed by: Sameer Sharp On 06/01/2020 20:23:18 PM
[2020-06-01 22:00] VITALS: BP 134/82
[2020-06-02 06:00] VITALS: BP 138/79
[2020-06-02 06:23] LABS: HEMATOCRIT 35.9 % (42.0-52.0); HEMOGLOBIN 11.3 g/dl (13.5-17.5); MEAN CORPUSCULAR HEMOGLOBIN 25.3 pg (27.0-33.0); MEAN CORPUSCULAR HGB CONC 31.5 g/dl (32.0-36.5); MEAN CORPUSCULAR VOLUME 80.3 fl (80.0-96.0); PLATELET COUNT, AUTOMATED 158 10^3/uL (150-450); RED BLOOD COUNT 4.47 10^6/uL (4.30-6.10); WHITE BLOOD COUNT 8.4 10^3/uL (4.0-10.0)
[2020-06-02 06:45] LABS: BLOOD UREA NITROGEN 21 MG/DL (7-18); CALCIUM LEVEL 8.3 MG/DL (8.8-10.2); CARBON DIOXIDE LEVEL 29 MEQ/L (21-32); CHLORIDE LEVEL 102 MEQ/L (98-107); CREATININE FOR GFR 1.17 MG/DL (0.70-1.30); GLOMERULAR FILTRATION RATE > 60.0 (>35); GLUCOSE, FASTING 164 MG/DL (70-100); POTASSIUM SERUM 3.8 MEQ/L (3.5-5.1); SODIUM LEVEL 137 MEQ/L (136-145)
--- NOTE | 2020-06-02 07:52 | REP ---
INDICATION: fall. COMPARISON: Comparison study 29 May 2020.. TECHNIQUE: AP and frogleg views of the left hip are provided. FINDINGS: Patient is status post pinning for femoral neck fracture. Three metallic screws are seen across the left femoral neck in good position. An osteochondroma is noted projecting medially from the femoral neck just above the lesser trochanter. Vascular calcification is noted. Lateral skin armando are noted. There is some postoperative soft tissue emphysema. Surgical sutures and clips are noted in the pelvis. IMPRESSION: Status post pinning for slightly impacted subcapital fracture unchanged in position. <Electronically signed by Mickey Quintero > 06/02/20 [id number]
[2020-06-02 08:13] VITALS: BP 138/79
[2020-06-02] MEDS: SERTRALINE HCL 25 MG TABLET PO SCH (08:13)
[2020-06-02] MEDS: HumaLOG INSULIN (NovoLOG) PER UNIT SC SCH ×3 (08:13→17:12)
[2020-06-02] MEDS: DOCUSATE SODIUM 100MG CAPSULE PO SCH (08:13)
[2020-06-02] MEDS: LOSARTAN 25 MG TAB PO SCH (08:13)
[2020-06-02] MEDS: OMEPRAZOLE 20 MG CAP PO SCH (08:13)
[2020-06-02 14:00] VITALS: BP 121/80
--- NOTE | 2020-06-02 15:05 | REP ---
INDICATION: FLUORO. COMPARISON: None. TECHNIQUE: Two views. 16 seconds of fluoroscopy time. FINDINGS: A sequence of 2 last image hold fluoroscopically obtained spot radiographs of the left hip are presented documenting pinning procedure. IMPRESSION: Procedural imaging. <Electronically signed by Mickey Quintero > 06/02/20 [id number]
--- NOTE | 2020-06-02 15:45 | DS.PDOC ---
Discharge Summary General Date of Admission May 30, 2020 at 03:08 Date of Discharge 06/02/20 Discharge Summary PROCEDURES PERFORMED DURING STAY: [None]. ADMITTING DIAGNOSES: Close left hip fracture History of colon cancer Type 2 diabetes Hypertension Anemia of chronic diseases Deconditioning Depression GERD DISCHARGE DIAGNOSES: Close left hip fracture History of colon cancer Type 2 diabetes Hypertension Anemia of chronic diseases Deconditioning Depression GERD COMPLICATIONS/CHIEF COMPLAINT: Closed Hip Fracture,Colon Cancer Hx. HISTORY OF PRESENT ILLNESS: Mr. Dejesus was carrying a stack of dishes from his dining room into his kitchen to be washed when he lost his balance and fell to his right side. During the fall he landed on his left hip and does think he might of bumped his head but he did not lose consciousness. After the fall he h ad significant pain in his left hip/groin. He was brought to the emergency department for further evaluation and treatment. 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 ALLERGIES: Please see below. PHYSICAL EXAMINATION ON DISCHARGE: VITAL SIGNS: Please see below. GENERAL APPEARANCE: NAD HEENT: no scleral icterus, no JVD, EOMI CARDIOVASCULAR: S1S2 LUNGS: Diminished lung sounds bilaterally ABDOMEN: soft & not tender w palpitation MUSCULOSKELETAL: no cyanosis, no swelling, pulsation intact, tenderness over left hip INTEGUMENT: no generalized pallor NEUROLOGICAL: cranial nerve function from 2-12 intact intact, follows commands, speech not dysarthric LABORATORY DATA: Please see below. IMAGING: INDICATION: fall. COMPARISON: Comparison study 29 May 2020.. TECHNIQUE: AP and frogleg views of the left hip are provided. FINDINGS: Patient is status post pinning for femoral neck fracture. Three metallic screws are seen across the left femoral neck in good position. An osteochondroma is noted projecting medially from the femoral neck just above the lesser trochanter. Vascular calcification is noted. Lateral skin armando are noted. There is some postoperative soft tissue emphysema. Surgical sutures and clips are noted in the pelvis. IMPRESSION: Status post pinning for slightly impacted subcapital fracture unchanged in position. PROGNOSIS: Fair ACTIVITY: [As tolerated]. DIET: Cardiac DISCHARGE PLAN: Transfer to acute rehabilitation ITEMS TO FOLLOWUP ON ON OUTPATIENT: Follow-up with PCP, with orthopedic team DISCHARGE CONDITION: [Stable]. TIME SPENT ON DISCHARGE: Greater than 30 minutes. Vital Signs/I&Os Vital Signs Date Time Temp Pulse Resp B/P (MAP) Pulse Ox O2 Delivery O2 Flow Rate FiO2 06/02/20 14:00 98.9 93 20 121/80 (94) 93 Room Air 05/31/20 15:00 2.0 I&O- Last 24 Hours up to 6 AM 06/02/20 06:00 Intake Total 800 ml Output Total 100 ml Balance 700 ml Laboratory Data Labs 24H Laboratory Tests 2 06/01/20 16:54: Bedside Glucose (Misc Panel) 186H 06/01/20 21:04: Bedside Glucose (Misc Panel) 194H 06/02/20 06:04: Nucleated Red Blood Cells % (auto) 0.0, Anion Gap 6L, Glomerular Filtration Rate > 60.0, Calcium Level 8.3L 06/02/20 06:26: Bedside Glucose (Misc Panel) 187H 06/02/20 11:37: Bedside Glucose (Misc Panel) 188H CBC/BMP Laboratory Tests 06/02/20 06:04 FSBS Laboratory Tests Test 06/01/20 16:54 06/01/20 21:04 06/02/20 06:26 06/02/20 11:37 Range/Units Bedside Glucose (Misc Panel) 186 194 187 188 83-110 MG/DL Discharge Medications Scheduled Aspirin (Aspirin EC) 81 Mg Tab, 81 MG PO DAILY, (Reported) Glipizide (Glipizide ER) 10 Mg Tab.er.24, 10 MG PO DAILY, (Reported) Lisinopril (Lisinopril) 20 Mg Tablet, 20 MG PO DAILY, (Reported) Losartan Potassium (Losartan Potassium) 25 Mg Tab, 25 MG PO DAILY, (Reported) Omeprazole (Omeprazole) 20 Mg Capsule.dr, 20 MG PO DAILY, (Reported) Sertraline Hcl (Sertraline HCl) 25 Mg Tab, 25 MG PO DAILY, (Reported) Allergies Coded Allergies: morphine (Verified Adverse Reaction, Intermediate, kleber, 05/29/20) MARINO MEJIAS DO Jun 02, 2020 15:45
[2020-06-02] MEDS: ACETAMINOPHEN TAB 650MG DOSE (2X325MG) PO PRN (17:12)
--- NOTE | 2020-06-03 15:23 | IPNPDOC ---
Text Note Date of Service The patient was seen on 06/03/20. NOTE Subjective: No any acute events overnight Objective: GENERAL APPEARANCE: NAD HEENT: no scleral icterus, no JVD, EOMI CARDIOVASCULAR: S1S2 LUNGS: Diminished lung sounds bilaterally ABDOMEN: soft & not tender w palpitation MUSCULOSKELETAL: no cyanosis, no swelling, pulsation intact, tenderness over left hip INTEGUMENT: no generalized pallor NEUROLOGICAL: cranial nerve function from 2-12 intact intact, follows commands, speech not dysarthric Assessment plan Mr. Dejesus was carrying a stack of dishes from his dining room into his kitchen to be washed when he lost his balance and fell to his right side. During the fall he landed on his left hip and does think he might of bumped his head but he did not lose consciousness. After the fall he had significant pain in his left hip/groin. He was brought to the emergency department for further evaluation and treatment. 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, unlikely metastases CEA within normal limit DENISE treated with BiPAP Continuing treatment with BiPAP overnight Type 2 diabetes Diabetes diet Insulin sliding scale Hypertension Continue home meds Anemia of chronic diseases Hemoglobin stable Follow-up with PCP in the outpatient settings Deconditioning Secondary to hip fracture PT/OT Depression Continue home meds GERD Continue PPI VS,Fishbone, I+O VS, Fishbone, I+O Vital Signs Date Time Temp Pulse Resp B/P (MAP) Pulse Ox O2 Delivery O2 Flow Rate FiO2 06/02/20 14:00 98.9 93 20 121/80 (94) 93 Room Air 05/31/20 15:00 2.0 I&O- Last 24 Hours up to 6 AM 06/03/20 06:00 Intake Total 1200 ml Output Total 0 ml Balance 1200 ml MARINO MEJIAS DO Jun 03, 2020 15:23
== END 2020-06-02 18:13 | disposition home or self-care (01) | DRG 482 ==
LOC: M ED 19:54 → M MS5PR 05-30 03:08 → M ED INP 05-30 03:08 → M MS5PR 05-30 03:09 → M ED 05-30 04:38
PROVIDERS: ADMIT Family Medicine; ATTEND Internal Medicine
PROC: 0QS734Z Reposition Left Upper Femur with Internal Fixation Device, Percutaneous Approach (ICD-10-PCS; principal; 2020-05-31 11:00)
DX: S72.002A Fracture of unspecified part of neck of left femur, initial encounter for closed fracture (principal); I10 Essential (primary) hypertension; E11.9 Type 2 diabetes mellitus without complications; F32.89 Other specified depressive episodes; D16.22 Benign neoplasm of long bones of left lower limb; K21.9 Gastro-esophageal reflux disease without esophagitis; Z85.038 Personal history of other malignant neoplasm of large intestine; W01.198A Fall on same level from slipping, tripping and stumbling with subsequent striking against other object, initial encounter; Y92.009 Unspecified place in unspecified non-institutional (private) residence as the place of occurrence of the external cause; G47.33 Obstructive sleep apnea (adult) (pediatric); Z79.82 Long term (current) use of aspirin; Z79.899 Other long term (current) drug therapy; Z88.5 Allergy status to narcotic agent; Z96.652 Presence of left artificial knee joint; K57.30 Diverticulosis of large intestine without perforation or abscess without bleeding

== ENCOUNTER 2020-06-02 12:36 | Inpatient (IN) | payer MEDICARE, OTHER ==
[~2020-06-02] VITALS: Ht 157.5 cm; Wt 75.5 kg
[~2020-06-02 12:36] MED LIST changes: +GLIP10TA18 PO; +LISI20TA33 PO; +OMEP-218 PO
[2020-06-02] MEDS ORDERED: BISACODYL 10 MG SUPP PR PRN (14:30)
[2020-06-02] MEDS ORDERED: GLUCOSE 4GM CHEW TABLET PO PRN (14:30)
[2020-06-02] MEDS ORDERED: GLUCAGON INJ 1MG VIAL SC PRN (14:30)
[2020-06-02] MEDS ORDERED: traMADol 50 MG TAB PO PRN (14:30)
[2020-06-02] MEDS ORDERED: DEXTROSE 50% 50 ML SYRINGE IV PRN (14:30)
[2020-06-02 18:49] VITALS: BP 158/82
[2020-06-02] MEDS: HumaLOG INSULIN (NovoLOG) PER UNIT SC SCH (20:16)
[2020-06-02] MEDS: DOCUSATE SODIUM 100MG CAPSULE PO SCH (20:20)
[2020-06-02] MEDS: SENNA 8.6 MG TAB (SENOKOT) PO SCH (20:20)
[2020-06-02] MEDS: RIVAROXABAN 10 MG TAB (XARELTO) PO SCH (20:20)
[2020-06-02] MEDS: ACETAMINOPHEN 500 MG TAB PO SCH (20:22)
[2020-06-03 05:21] VITALS: BP 122/62
[2020-06-03 06:47] LABS: BASO % 0.5 % (0.0-1.0); EOS # 0.3 10^3/uL (0.0-0.5); EOS % 3.9 % (0.0-3.0); HEMATOCRIT 37.8 % (42.0-52.0); HEMOGLOBIN 11.8 g/dl (13.5-17.5); LYMPH # 2.4 10^3/uL (1.5-5.0); LYMPH % 27.9 % (24.0-44.0); MEAN CORPUSCULAR HEMOGLOBIN 25.2 pg (27.0-33.0); MEAN CORPUSCULAR HGB CONC 31.2 g/dl (32.0-36.5); MEAN CORPUSCULAR VOLUME 80.6 fl (80.0-96.0); MONO # 0.7 10^3/uL (0.0-0.8); MONO % 7.8 % (0.0-5.0); NEUTROPHILS % 59.1 % (36.0-66.0); PLATELET COUNT, AUTOMATED 183 10^3/uL (150-450); RED BLOOD COUNT 4.69 10^6/uL (4.30-6.10); WHITE BLOOD COUNT 8.5 10^3/uL (4.0-10.0)
[2020-06-03 07:12] LABS: BILIRUBIN,TOTAL 0.8 MG/DL (0.2-1.0); CALCIUM LEVEL 8.5 MG/DL (8.8-10.2); CREATININE FOR GFR 1.23 MG/DL (0.70-1.30); GLOMERULAR FILTRATION RATE 59.3 (>35); TOTAL PROTEIN 6.4 GM/DL (6.4-8.2)
[2020-06-03] MEDS: HumaLOG INSULIN (NovoLOG) PER UNIT SC SCH ×4 (07:55→20:33)
[2020-06-03] MEDS: LOSARTAN 25 MG TAB PO SCH (09:06)
[2020-06-03] MEDS: SERTRALINE HCL 25 MG TABLET PO SCH (09:06)
[2020-06-03] MEDS: DOCUSATE SODIUM 100MG CAPSULE PO SCH ×2 (09:06→20:32)
[2020-06-03] MEDS: ACETAMINOPHEN 500 MG TAB PO SCH ×3 (09:07→20:33)
[2020-06-03] MEDS: OMEPRAZOLE 20 MG CAP PO SCH (09:07)
--- NOTE | 2020-06-03 10:59 | HPEPDOC ---
Physician Vice President Note DATE OF ADMISSION: 06-02-20 DATE OF SERVICE: 06-03-20 TIME OF ADMISSION: Please refer to physician's admission order. SOURCE OF ADMISSION INFORMATION: [facility] record and patient CHIEF COMPLAINT: hip fracture HISTORY OF PRESENT ILLNESS: 89M pmh low back pain, HTN, benign neoplasm of the transverse colon, DM2, GERD, DENISE who fell at home and presented to [facility] ED on 05-29-20 with pain and difficulty walking. He was diagnosed with a left femur fracture and further work-up was done to determine if the lesion was pathological. Nuclear bone scan 05-30-20 showed, Mildly increased soft tissue uptake and bony uptake in the recently operated left hipNo evidence to suggest skeletal metastatic disease. He was cleared by medicine and underwent a left ORIF on 05-31-20with no post-op complications with follow up hip xrays showing, Status post pinning for slightly impacted subcapital fracture unchanged in position. He had some anemia following surgery with elevated finger sticks, demonstrated new mobility and ADl impairments and deemed medically appropriate for discharge to ARU on 06-02-20. REVIEW OF SYSTEMS: The following is a completed review of systems and has been reviewed. Review of systems otherwise unremarkable. PAIN: Patient self reports left hip pain EYES: No recent vision changes EARS, NOSE, & THROAT: No throat pain, or dysphagia, or rhinorrhea CARDIOVASCULAR: Denies chest pain or palpitations PULMONARY: Denies shortness of breath GASTROINTESTINAL: Denies constipation/diarrhea GENITOURINARY: denies dysuria MUSCULOSKELETAL: s/p left hip fracture NEUROLOGICAL:denies tremor, +dementia? HEMATOLOGICAL: denies asy bruising SKIN: left hip incision PSYCHIATRIC: +confused All other review of systems found to be negative. PAST MEDICAL HISTORY: as per HPI PAST SURGICAL HISTORY: Hernia repair, cholecystectomy, colon resection, deviated septum correction ALLERGIES: Please see below. MEDICATIONS: Please see below. SOCIAL HISTORY: No etoh/illicit drugs/smoking DIET: consistent carb PHYSICAL EXAMINATION: VITAL SIGNS: Please see below. GENERAL: Pleasant and cooperative. No acute distress. HEENT: PERRL. Extraocular movements intact. Clear conjunctiva CARDIOVASCULAR: Regular rate and rhythm. No murmurs, rubs, or gallops LUNGS: Clear to auscultation bilaterally. No wheezes. No rhonchi ABDOMEN: Soft, nontender, nondistended. Positive bowel sounds. Normal active bowel sounds NEUROLOGICAL: Alert and oriented times three, able to follow commands, however slow to respond. Cranial nerves II through XII grossly intact. Sensation grossly intact EXTREMITIES: 5\5 strength bilateral upper extremities. 5\5 strength right lower extremity. 5/5 left ankle DF/EHL and PF (limited due to recent surgery) SKIN: left hip incision without drainage, periwound with no induration/ecchymosis LABORATORY DATA: Please see below. IMAGING:Imaging documentation personally reviewed by record FUNCTIONAL STATUS: Premorbid: Independent with all activities of daily life as well as mobility On Admission:Contact guard-min assist for functional transfers, ambulation, bed mobility, dressing, toileting GOALS: Mod-I for functional transfers, bed mobility, ambulation household distances, dressing, toileting, bathing ASSESSMENT:89-year-old M with past medical history of colon resection, HTN who presents status post left hip fracture PLAN: 1. Rehab- PT/oT advance mobility and ADLs, PWB 50% to LLE, stren gthen/stretch/maintain ROM all 4limbs 2. Cardiac- hx of HTN, home BP meds held, will add back lisinopril at lower dose 10mg daily and monitor BPs, will restart home ASA as well for cardioprotection -medicine consulted to assist in overall management 3. Resp- DENISE c/u CPAP at night, encourage incentive spirometry, monitor for infection 4. Endo- hx of DM c/u ISS and monitor FS, patient on glipizide at home 5. GI- hx of colon resection, c/u prilosec for ppx, bowel meds 6. -monitor PVRs 7. ortho- s.p left hip ORIF, PWB, f/u ortho as outpatient 8. DVT ppx- xarelto and teds 9. Pain- tylneol 10. 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 Dispo- tbd POST ADMISSION PHYSICIAN EVALUATION: Medical and functional status: Description of medical status, medical assessment: As above. Rehabilitation diagnosis and current and prior cold morbid medical conditions as above. Risk of complications and plans to mitigate them as above. Description of functional status current status is as above. Prior status as above. Status compared to preadmission: There are no clinically significant differences between the patient's current status and the information described on the preadmission screening document. Treatment plan anticipated: Treatment plan is as described above. Required disciplines including physical therapy, occupational therapy, others as noted above Intensity of services: 3 hours a day, 6 days a week. Special considerations: There are no specific special or safety considerations that would likely preclude immediate implementation of an intensive rehabilitation program or subsequently influence the plan of care. ATTESTATION: Considering all the information above, it is my best judgment that this patient requires intensive rehabilitation therapy as described above and an inpatient hospital environment due to the complexity of nursing, medical, and rehabilitation needs required by the patient. Furthermore, this patient can reasonably be expected to participate in an benefit from an inpatient rehabi litation stay with an interdisciplinary team approach to the delivery of rehabilitation care under the direction and supervision of rehabilitation physician. PROGNOSIS: good ESTIMATED LENGTH OF STAY:10-14 days. PROJECTED DISCHARGE DESTINATION: Home with family support and any durable medical equipment required to increase functional safety and mobility. TIME SPENT COUNSELING AND COORDINATING INITIAL CARE: Greater than 70 minutes. Vital Signs Vital Sign - Last 24 Hours 06/02/20 06/03/20 06/03/20 18:49 05:21 09:06 Temp 98.1 98.0 Pulse 86 73 Resp 19 18 B/P (MAP) 158/82 (107) 122/62 (82) 120/62 Pulse Ox 98 94 O2 Delivery Room Air Room Air Laboratory Data CBC/BMP Laboratory Tests 06/03/20 06:24 Labs 24H Laboratory Tests 2 06/02/20 19:33: Bedside Glucose (Misc Panel) 170H 06/03/20 04:41: Bedside Glucose (Misc Panel) 169H 06/03/20 06:24: Immature Granulocyte % (Auto) 0.8, Neutrophils (%) (Auto) 59.1, Lymphocytes (%) (Auto) 27.9, Monocytes (%) (Auto) 7.8H, Eosinophils (%) (Auto) 3.9H, Basophils (%) (Auto) 0.5, Neutrophils # (Auto) 5.0, Lymphocytes # (Auto) 2.4, Monocytes # (Auto) 0.7, Eosinophils # (Auto) 0.3, Basophils # (Auto) 0.0, Nucleated Red Blood Cells % (auto) 0.0, Anion Gap 10, Glomerular Filtration Rate 59.3, Calcium Level 8.5L, Total Bilirubin 0.8, Aspartate Amino Transf (AST/SGOT) 22, Alanine Aminotransferase (ALT/SGPT) 37, Alkaline Phosphatase 117, Total Protein 6.4, Albumin 3.0L, Albumin/Globulin Ratio 0.9 FSBS Laboratory Tests Test 06/02/20 19:33 06/03/20 04:41 Range/Units Bedside Glucose (Misc Panel) 170 169 83-110 MG/DL Home Medications Scheduled Aspirin (Aspirin EC) 81 Mg Tab, 81 MG PO DAILY, (Reported) Glipizide (Glipizide ER) 10 Mg Tab.er.24, 10 MG PO DAILY, (Reported) Lisinopril (Lisinopril) 20 Mg Tablet, 20 MG PO DAILY, (Reported) Losartan Potassium (Losartan Potassium) 25 Mg Tab, 25 MG PO DAILY, (Reported) Omeprazole (Omeprazole) 20 Mg Capsule.dr, 20 MG PO DAILY, (Reported) Sertraline Hcl (Sertraline HCl) 25 Mg Tab, 25 MG PO DAILY, (Reported) Allergies Coded Allergies: morphine (Verified Adverse Reaction, kleber Watts, 05/29/20) A-FIB/CHADSVASC A-FIB History Current/History of A-Fib/PAF?: No Current PO Anticoag Therapy: No NINOSKA VARGHESE MD Jun 03, 2020 10:59
[2020-06-03] MEDS: ASPIRIN 81 MG ENTERIC TAB PO SCH (11:55)
[2020-06-03 14:00] VITALS: BP 130/68
--- NOTE | 2020-06-03 15:24 | IPNPDOC ---
Text Note Date of Service The patient was seen on 06/03/20. NOTE Subjective: No any acute events overnight Objective: GENERAL APPEARANCE: NAD HEENT: no scleral icterus, no JVD, EOMI CARDIOVASCULAR: S1S2 LUNGS: Diminished lung sounds bilaterally ABDOMEN: soft & not tender w palpitation MUSCULOSKELETAL: no cyanosis, no swelling, pulsation intact, tenderness over left hip INTEGUMENT: no generalized pallor NEUROLOGICAL: cranial nerve function from 2-12 intact intact, follows commands, speech not dysarthric Assessment plan Mr. Dejesus was carrying a stack of dishes from his dining room into his kitchen to be washed when he lost his balance and fell to his right side. During the fall he landed on his left hip and does think he might of bumped his head but he did not lose consciousness. After the fall he had significant pain in his left hip/groin. He was brought to the emergency department for further evaluation and treatment. 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, unlikely metastases CEA within normal limit DENISE treated with BiPAP Continuing treatment with BiPAP overnight Type 2 diabetes Diabetes diet Insulin sliding scale Hypertension Continue home meds Anemia of chronic diseases Hemoglobin stable Follow-up with PCP in the outpatient settings Deconditioning Secondary to hip fracture PT/OT Depression Continue home meds GERD Continue PPI VS,Fishbone, I+O VS, Fishbone, I+O Laboratory Tests 06/03/20 06:24 Vital Signs Date Time Temp Pulse Resp B/P (MAP) Pulse Ox O2 Delivery O2 Flow Rate FiO2 06/03/20 14:00 97.8 74 18 130/68 (88) 97 Room Air I&O- Last 24 Hours up to 6 AM 06/03/20 06:00 Intake Total 90 ml Balance 90 ml MARINO MEJIAS DO Jun 03, 2020 15:24
[2020-06-03] MEDS: RIVAROXABAN 10 MG TAB (XARELTO) PO SCH (17:52)
[2020-06-03 20:00] VITALS: BP 128/73
[2020-06-03] MEDS: SENNA 8.6 MG TAB (SENOKOT) PO SCH (20:32)
[2020-06-04 06:00] VITALS: BP 154/74
[2020-06-04] MEDS: HumaLOG INSULIN (NovoLOG) PER UNIT SC SCH ×4 (08:21→19:58)
[2020-06-04] MEDS: SERTRALINE HCL 25 MG TABLET PO SCH (08:22)
[2020-06-04] MEDS: ASPIRIN 81 MG ENTERIC TAB PO SCH (08:23)
[2020-06-04] MEDS: DOCUSATE SODIUM 100MG CAPSULE PO SCH ×2 (08:23→20:42)
[2020-06-04] MEDS: OMEPRAZOLE 20 MG CAP PO SCH (08:23)
[2020-06-04] MEDS: LOSARTAN 25 MG TAB PO SCH (08:23)
[2020-06-04] MEDS: ACETAMINOPHEN 500 MG TAB PO SCH ×3 (08:23→20:43)
--- NOTE | 2020-06-04 09:17 | IPNPDOC ---
PM&R Progress Note DATE OF SERVICE: Jun 04, 2020 [employer] Progress Note SUbjective: Patient reporting his left thigh feels sore and is open to trying a lidoderm patch. REVIEW OF SYSTEMS: The following is a completed review of systems and has been reviewed. Review of systems otherwise unremarkable. PAIN: Patient self reports left hip pain EYES: No recent vision changes EARS, NOSE, & THROAT: No throat pain, or dysphagia, or rhinorrhea CARDIOVASCULAR: Denies chest pain or palpitations PULMONARY: Denies shortness of breath GASTROINTESTINAL: Denies constipation/diarrhea GENITOURINARY: denies dysuria MUSCULOSKELETAL: s/p left hip fracture NEUROLOGICAL:denies tremor, +dementia? HEMATOLOGICAL: denies asy bruising SKIN: left hip incision PSYCHIATRIC: +confused All other review of systems found to be negative. PHYSICAL EXAMINATION: VITAL SIGNS: Please see below. GENERAL: Pleasant and cooperative. No acute distress. HEENT: PERRL. Extraocular movements intact. Clear conjunctiva CARDIOVASCULAR: Regular rate and rhythm. No murmurs, rubs, or gallops LUNGS: Clear to auscultation bilaterally. No wheezes. No rhonchi ABDOMEN: Soft, nontender, nondistended. Positive bowel sounds. Normal active bowel sounds NEUROLOGICAL: Alert and oriented times three, able to follow commands, however slow to respond. Cranial nerves II through XII grossly intact. Sensation grossly intact EXTREMITIES: 5\5 strength bilateral upper extremities. 5\5 strength right lower extremity. 5/5 left ankle DF/EHL and PF (limited due to recent surgery) SKIN: left hip incision without drainage, periwound with no induration /ecchymosis ASSESSMENT:89-year-old M with past medical history of colon resection, HTN who presents status post left hip fracture PLAN: 1. Rehab- PT/oT advance mobility and ADLs, PWB 50% to LLE, strengthen/stretch/maintain ROM all 4limbs 2. Cardiac- hx of HTN, home BP meds held, will add back lisinopril at lower dose 10mg daily and monitor BPs, will restart home ASA as well for cardioprotection -medicine consulted to assist in overall management 3. Resp- DENISE c/u CPAP at night, encourage incentive spirometry, monitor for infection 4. Endo- hx of DM c/u ISS and monitor FS, patient on glipizide at home 5. GI- hx of colon resection, c/u prilosec for ppx, bowel meds 6. -monitor PVRs 7. ortho- s.p left hip ORIF, PWB, f/u ortho as outpatient 8. DVT ppx- xarelto and teds 9. Pain- tylenol, holding opioids to avoid deliriu, will start lidoderm patch to anterior thigh 10. 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 Dispo- tbd Allergies Coded Allergies: morphine (Verified Adverse Reaction, Intermediate, kleber, 05/29/20) Vital Signs Vital Signs Date Time Temp Pulse Resp B/P (MAP) Pulse Ox O2 Delivery O2 Flow Rate FiO2 06/04/20 08:22 142/58 06/04/20 06:00 96.9 74 18 98 Room Air Laboratory Data Labs 24H Laboratory Tests 2 06/03/20 11:32: Bedside Glucose (Misc Panel) 201H 06/03/20 16:22: Bedside Glucose (Misc Panel) 156H 06/03/20 20:23: Bedside Glucose (Misc Panel) 234H 06/04/20 06:54: Bedside Glucose (Misc Panel) 171H Current Medications Current Medications Current Medications Medications (Trade) Dose Ordered Sig/Shasha Route PRN Reason Start Time Stop Time Status Last Admin Dose Admin Acetaminophen (Tylenol Tab) 1,000 mg TID PO 06/02/20 21:00 06/04/20 08:23 Aspirin (Ecotrin) 81 mg DAILY PO 06/03/20 11:00 06/04/20 08:23 Bisacodyl (Dulcolax Suppository) 10 mg DAILYPRN PRN [place] CONSTIPATION 06/02/20 14:30 Dextrose (Dextrose 50%) 25 ml ASDIRECTED PRN IV SEE LABEL COMMENTS 06/02/20 14:30 Docusate Sodium (Colace) 100 mg BID PO 06/02/20 21:00 06/04/20 08:23 Glucagon (Glucagon) 1 mg ASDIRECTED PRN SC SEE LABEL COMMENTS 06/02/20 14:30 Glucose (Glucose) 16 GM ASDIRECTED PRN PO SEE LABEL COMMENTS 06/02/20 14:30 Home Med (Med Rec Complete!) ASDIRECTED XX 06/02/20 20:30 06/02/20 20:21 DC Insulin Human Lispro (HumaLOG INSULIN) SEE PROTOCOL TABLE AC SC 06/03/20 07:30 06/04/20 08:21 Insulin Human Lispro (HumaLOG INSULIN) SEE PROTOCOL TABLE QHS SC 06/02/20 21:00 Lisinopril (Prinivil) 10 mg DAILY PO 06/03/20 11:00 06/04/20 08:22 Losartan Potassium (Cozaar) 25 mg DAILY PO 06/03/20 09:00 06/04/20 08:23 Omeprazole (PriLOSEC) 20 mg DAILY PO 06/03/20 09:00 06/04/20 08:23 Rivaroxaban (Xarelto) 10 mg DAILY@1800 PO 06/02/20 18:00 06/03/20 17:52 Senna (Senokot) 1 tab QHS PO 06/02/20 21:00 06/03/20 20:32 Sertraline HCl (Zoloft) 25 mg DAILY PO 06/03/20 09:00 06/04/20 08:22 Tramadol HCl (Ultram) 50 mg Q4HP PRN PO MODERATE PAIN (PS 5-7) 06/02/20 14:30 06/03/20 14:19 NINOSKA SHINE MD Jun 04, 2020 09:17
[2020-06-04] MEDS: LIDOCAINE 5% (LIDODERM) PATCH TD SCH (12:46)
[2020-06-04 14:00] VITALS: BP 94/52
[2020-06-04 14:20] VITALS: BP 108/56
[2020-06-04] MEDS: RIVAROXABAN 10 MG TAB (XARELTO) PO SCH (17:41)
[2020-06-04 20:00] VITALS: BP 105/56
[2020-06-04] MEDS: SENNA 8.6 MG TAB (SENOKOT) PO SCH (20:42)
[2020-06-04] MEDS ORDERED: **NOTE PATIENT COMMENT** MISC XX SCH (21:00)
[2020-06-05 06:00] VITALS: BP 138/69
[2020-06-05 06:40] LABS: BASO % 0.4 % (0.0-1.0); EOS # 0.3 10^3/uL (0.0-0.5); EOS % 3.4 % (0.0-3.0); HEMATOCRIT 36.5 % (42.0-52.0); LYMPH # 2.4 10^3/uL (1.5-5.0); LYMPH % 32.3 % (24.0-44.0); MEAN CORPUSCULAR HEMOGLOBIN 24.6 pg (27.0-33.0); MEAN CORPUSCULAR HGB CONC 30.1 g/dl (32.0-36.5); MEAN CORPUSCULAR VOLUME 81.5 fl (80.0-96.0); MONO # 0.6 10^3/uL (0.0-0.8); MONO % 7.8 % (0.0-5.0); NEUTROPHILS # 4.1 10^3/uL (1.5-8.5); NEUTROPHILS % 55.2 % (36.0-66.0); PLATELET COUNT, AUTOMATED 179 10^3/uL (150-450); RED BLOOD COUNT 4.48 10^6/uL (4.30-6.10); WHITE BLOOD COUNT 7.4 10^3/uL (4.0-10.0)
[2020-06-05 07:07] LABS: CALCIUM LEVEL 8.4 MG/DL (8.8-10.2); CREATININE FOR GFR 1.58 MG/DL (0.70-1.30); GLOMERULAR FILTRATION RATE 44.4 (>35); POTASSIUM SERUM 4.8 MEQ/L (3.5-5.1)
[2020-06-05] MEDS: HumaLOG INSULIN (NovoLOG) PER UNIT SC SCH ×4 (08:10→20:18)
[2020-06-05] MEDS: DOCUSATE SODIUM 100MG CAPSULE PO SCH ×2 (08:17→20:17)
[2020-06-05] MEDS: LIDOCAINE 5% (LIDODERM) PATCH TD SCH (08:17)
[2020-06-05] MEDS: SERTRALINE HCL 25 MG TABLET PO SCH (08:17)
[2020-06-05] MEDS: OMEPRAZOLE 20 MG CAP PO SCH (08:17)
[2020-06-05] MEDS: ASPIRIN 81 MG ENTERIC TAB PO SCH (08:17)
[2020-06-05] MEDS: LOSARTAN 25 MG TAB PO SCH (08:17)
[2020-06-05] MEDS: ACETAMINOPHEN 500 MG TAB PO SCH ×3 (08:18→20:18)
[2020-06-05] MEDS: VITAMIN B COMPLEX/VIT C CAP PO SCH (12:19)
[2020-06-05 14:00] VITALS: BP 102/59
[2020-06-05] MEDS: GABAPENTIN 100 MG CAP PO SCH ×2 (17:39→20:17)
[2020-06-05] MEDS: RIVAROXABAN 10 MG TAB (XARELTO) PO SCH (17:39)
[2020-06-05] MEDS: ANALGESIC BALM CRM 120 GM TOP SCH ×2 (17:42→20:18)
[2020-06-05 20:00] VITALS: BP 143/66
[2020-06-05] MEDS: SENNA 8.6 MG TAB (SENOKOT) PO SCH (20:17)
[2020-06-06 05:05] VITALS: BP 141/67
[2020-06-06] MEDS: DOCUSATE SODIUM 100MG CAPSULE PO SCH ×2 (09:00→20:12)
[2020-06-06] MEDS: VITAMIN B COMPLEX/VIT C CAP PO SCH (09:26)
[2020-06-06] MEDS: GABAPENTIN 100 MG CAP PO SCH ×3 (09:27→20:11)
[2020-06-06] MEDS: ASPIRIN 81 MG ENTERIC TAB PO SCH (09:27)
[2020-06-06] MEDS: SERTRALINE HCL 25 MG TABLET PO SCH (09:27)
[2020-06-06] MEDS: glipiZIDE XL 5 MG TABCR PO SCH (09:27)
[2020-06-06] MEDS: OMEPRAZOLE 20 MG CAP PO SCH (09:27)
[2020-06-06] MEDS: HumaLOG INSULIN (NovoLOG) PER UNIT SC SCH ×4 (09:28→20:12)
[2020-06-06] MEDS: ACETAMINOPHEN 500 MG TAB PO SCH ×3 (09:28→20:11)
[2020-06-06] MEDS: LOSARTAN 25 MG TAB PO SCH (09:32)
[2020-06-06] MEDS: ANALGESIC BALM CRM 120 GM TOP SCH ×3 (09:33→20:13)
[2020-06-06 14:00] VITALS: BP 106/58
[2020-06-06] MEDS: RIVAROXABAN 10 MG TAB (XARELTO) PO SCH (17:08)
[2020-06-06 20:00] VITALS: BP 131/65
[2020-06-06] MEDS: SENNA 8.6 MG TAB (SENOKOT) PO SCH (20:12)
[2020-06-07 05:12] VITALS: BP 149/82
[2020-06-07] MEDS: SERTRALINE HCL 25 MG TABLET PO SCH (07:45)
[2020-06-07] MEDS: ASPIRIN 81 MG ENTERIC TAB PO SCH (07:45)
[2020-06-07] MEDS: GABAPENTIN 100 MG CAP PO SCH ×3 (07:45→21:12)
[2020-06-07] MEDS: glipiZIDE XL 5 MG TABCR PO SCH (07:45)
[2020-06-07] MEDS: OMEPRAZOLE 20 MG CAP PO SCH (07:45)
[2020-06-07] MEDS: VITAMIN B COMPLEX/VIT C CAP PO SCH (07:45)
[2020-06-07] MEDS: ACETAMINOPHEN 500 MG TAB PO SCH ×3 (07:46→21:12)
[2020-06-07] MEDS: ANALGESIC BALM CRM 120 GM TOP SCH ×3 (07:46→21:13)
[2020-06-07] MEDS: HumaLOG INSULIN (NovoLOG) PER UNIT SC SCH ×4 (07:47→21:00)
[2020-06-07] MEDS: LOSARTAN 25 MG TAB PO SCH (07:49)
[2020-06-07] MEDS: DOCUSATE SODIUM 100MG CAPSULE PO SCH ×2 (07:50→21:12)
[2020-06-07 14:00] VITALS: BP 114/60
[2020-06-07] MEDS: RIVAROXABAN 10 MG TAB (XARELTO) PO SCH (17:00)
[2020-06-07 20:00] VITALS: BP 110/61
[2020-06-07] MEDS: SENNA 8.6 MG TAB (SENOKOT) PO SCH (21:12)
[2020-06-08 06:00] VITALS: BP 150/78
[2020-06-08 07:43] LABS: BASO # 0.1 10^3/uL (0.0-0.2); BASO % 0.6 % (0.0-1.0); EOS # 0.3 10^3/uL (0.0-0.5); EOS % 3.2 % (0.0-3.0); HEMATOCRIT 38.6 % (42.0-52.0); HEMOGLOBIN 11.7 g/dl (13.5-17.5); LYMPH # 2.8 10^3/uL (1.5-5.0); LYMPH % 33.5 % (24.0-44.0); MEAN CORPUSCULAR HEMOGLOBIN 24.5 pg (27.0-33.0); MEAN CORPUSCULAR HGB CONC 30.3 g/dl (32.0-36.5); MEAN CORPUSCULAR VOLUME 80.8 fl (80.0-96.0); MONO # 0.5 10^3/uL (0.0-0.8); MONO % 5.9 % (2.0-8.0); NEUTROPHILS # 4.7 10^3/uL (1.5-8.5); NEUTROPHILS % 55.8 % (36.0-66.0); PLATELET COUNT, AUTOMATED 251 10^3/uL (150-450); RED BLOOD COUNT 4.78 10^6/uL (4.30-6.10); WHITE BLOOD COUNT 8.3 10^3/uL (4.0-10.0)
[2020-06-08] MEDS: glipiZIDE XL 5 MG TABCR PO SCH (07:57)
[2020-06-08] MEDS: VITAMIN B COMPLEX/VIT C CAP PO SCH (07:58)
[2020-06-08] MEDS: ACETAMINOPHEN 500 MG TAB PO SCH ×3 (07:58→20:27)
[2020-06-08] MEDS: SERTRALINE HCL 25 MG TABLET PO SCH (07:58)
[2020-06-08] MEDS: OMEPRAZOLE 20 MG CAP PO SCH (07:58)
[2020-06-08] MEDS: ASPIRIN 81 MG ENTERIC TAB PO SCH (07:58)
[2020-06-08] MEDS: HumaLOG INSULIN (NovoLOG) PER UNIT SC SCH ×4 (07:59→20:31)
[2020-06-08] MEDS: LOSARTAN 25 MG TAB PO SCH (08:00)
[2020-06-08] MEDS: ANALGESIC BALM CRM 120 GM TOP SCH ×3 (08:00→20:28)
[2020-06-08] MEDS: GABAPENTIN 100 MG CAP PO SCH (08:01)
[2020-06-08 08:03] LABS: CALCIUM LEVEL 8.5 MG/DL (8.8-10.2); CREATININE FOR GFR 1.39 MG/DL (0.70-1.30); GLOMERULAR FILTRATION RATE 51.5 (>35)
[2020-06-08] MEDS: DOCUSATE SODIUM 100MG CAPSULE PO SCH ×2 (08:03→20:27)
[2020-06-08 14:00] VITALS: BP 127/72
--- NOTE | 2020-06-08 15:16 | IPNPDOC ---
Text Note Date of Service The patient was seen on 06/08/20. NOTE Subjective: No any acute events overnight, tolerating rehab well. Physical Exam GENERAL APPEARANCE: NAD HEENT: no scleral icterus, no JVD, EOMI CARDIOVASCULAR: S1S2 LUNGS: Diminished lung sounds bilaterally ABDOMEN: soft & not tender w palpitation MUSCULOSKELETAL: no cyanosis, no swelling, pulsation intact, tenderness over left hip INTEGUMENT: no generalized pallor NEUROLOGICAL: cranial nerve function from 2-12 intact intact, follows commands, speech not dysarthric Assessment and plan Mr. Dejesus was carrying a stack of dishes from his dining room into his kitchen to be washed when he lost his balance and fell to his right side. During the fall he landed on his left hip and does think he might of bumped his head but he did not lose consciousness. After the fall he had significant pain in his left hip/groin. He was brought to the emergency department for further evaluation and treatment. 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 HEMANTH inhibitors on hold as Cr bumped a little. 6) Anemia of chronic diseases Hemoglobin stable Follow-up with PCP in the outpatient settings 7) Deconditioning Secondary to hip fracture PT/OT Disposition as per primary VS,Ashvin, I+O VS, Juane, I+O Laboratory Tests 06/08/20 07:11 Vital Signs Date Time Temp Pulse Resp B/P (MAP) Pulse Ox O2 Delivery O2 Flow Rate FiO2 06/08/20 07:59 119/64 06/08/20 06:00 98.1 71 18 98 Room Air I&O- Last 24 Hours up to 6 AM 06/08/20 05:59 Intake Total 1220 ml Output Total 425 ml Balance 795 ml MICHELLE SCHMITT MD Jun 08, 2020 15:16
[2020-06-08] MEDS: **hydrALAZINE** 10 MG TAB PO SCH ×3 (16:00→20:31)
[2020-06-08] MEDS: RIVAROXABAN 10 MG TAB (XARELTO) PO SCH (17:00)
[2020-06-08 20:20] VITALS: BP 121/67
[2020-06-08] MEDS: SENNA 8.6 MG TAB (SENOKOT) PO SCH (20:27)
[2020-06-08] MEDS: amLODIPine 5 MG TAB PO SCH (20:27)
[2020-06-09 05:53] VITALS: BP 132/72
[2020-06-09 06:49] LABS: CALCIUM LEVEL 8.4 MG/DL (8.8-10.2); CREATININE FOR GFR 1.26 MG/DL (0.70-1.30); GLOMERULAR FILTRATION RATE 57.6 (>35); POTASSIUM SERUM 4.8 MEQ/L (3.5-5.1)
[2020-06-09] MEDS: glipiZIDE XL 5 MG TABCR PO SCH (07:47)
[2020-06-09] MEDS: HumaLOG INSULIN (NovoLOG) PER UNIT SC SCH (07:48)
[2020-06-09] MEDS: **hydrALAZINE** 10 MG TAB PO SCH ×3 (07:48→19:53)
[2020-06-09] MEDS: OMEPRAZOLE 20 MG CAP PO SCH (07:49)
[2020-06-09] MEDS: DOCUSATE SODIUM 100MG CAPSULE PO SCH ×2 (07:49→19:39)
[2020-06-09] MEDS: ASPIRIN 81 MG ENTERIC TAB PO SCH (07:49)
[2020-06-09] MEDS: amLODIPine 5 MG TAB PO SCH ×2 (07:49→20:11)
[2020-06-09] MEDS: VITAMIN B COMPLEX/VIT C CAP PO SCH (07:49)
[2020-06-09] MEDS: SERTRALINE HCL 25 MG TABLET PO SCH (07:49)
[2020-06-09] MEDS: ANALGESIC BALM CRM 120 GM TOP SCH ×3 (07:50→20:12)
[2020-06-09] MEDS: ACETAMINOPHEN 500 MG TAB PO SCH ×3 (07:50→20:11)
--- NOTE | 2020-06-09 10:44 | IPNPDOC ---
PM&R Progress Note DATE OF SERVICE: Jun 05, 2020 [employer] Progress Note SUbjective: Patient asking to try a muscle rub for his thigh instead of the lidoderm patch. He states he feels pain with ambulation in his left hip and knee and would like to try a low dose of gabapentin to see if this helps him. REVIEW OF SYSTEMS: The following is a completed review of systems and has been reviewed. Review of systems otherwise unremarkable. PAIN: Patient self reports left hip pain EYES: No recent vision changes EARS, NOSE, & THROAT: No throat pain, or dysphagia, or rhinorrhea CARDIOVASCULAR: Denies chest pain or palpitations PULMONARY: Denies shortness of breath GASTROINTESTINAL: Denies constipation/diarrhea GENITOURINARY: denies dysuria MUSCULOSKELETAL: s/p left hip fracture NEUROLOGICAL:denies tremor, +dementia? HEMATOLOGICAL: denies easy bruising SKIN: left hip incision PSYCHIATRIC: unremarkable All other review of systems found to be negative. PHYSICAL EXAMINATION: VITAL SIGNS: Please see below. GENERAL: Pleasant and cooperative. No acute distress. HEENT: PERRL. Extraocular movements intact. Clear conjunctiva CARDIOVASCULAR: Regular rate and rhythm. No murmurs, rubs, or gallops LUNGS: Clear to auscultation bilaterally. No wheezes. No rhonchi ABDOMEN: Soft, nontender, nondistended. Positive bowel sounds. Normal active b owel sounds NEUROLOGICAL: Alert and oriented times three, able to follow commands, however slow to respond. Cranial nerves II through XII grossly intact. Sensation grossly intact EXTREMITIES: 5\5 strength bilateral upper extremities. 5\5 strength right lower extremity. 5/5 left ankle DF/EHL and PF (limited due to recent surgery) SKIN: left hip incision without drainage, periwound with no indurati on/ecchymosis ASSESSMENT:89-year-old M with past medical history of colon resection, HTN who presents status post left hip fracture PLAN: 1. Rehab- PT/oT advance mobility and ADLs, PWB 50% to LLE, strengthen/stretch/maintain ROM all 4limbs 2. Cardiac- hx of HTN, home BP meds held,c/u lisinopril at lower dose 10mg daily and monitor BPs, c/u ASA for cardioprotection -medicine consulted to assist in overall management 3. Resp- DENISE c/u CPAP at night, encourage incentive spirometry, monitor for infection 4. Endo- hx of DM c/u ISS and monitor FS, patient on glipizide at home 5. GI- hx of colon resection, c/u prilosec for ppx, bowel meds 6. -monitor PVRs 7. ortho- s.p left hip ORIF, PWB, f/u ortho as outpatient 8. DVT ppx- xarelto and teds 9. Pain- tylenol, holding opioids to avoid delirium, will switch lidoderm patch to menthol salicylate rub and trial low dose gabapentin 10. 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 Dispo- tbd Allergies Coded Allergies: morphine (Verified Adverse Reaction, Intermediate, kleber, 05/29/20) Vital Signs Vital Signs Date Time Temp Pulse Resp B/P (MAP) Pulse Ox O2 Delivery O2 Flow Rate FiO2 06/09/20 07:48 130/70 06/09/20 05:53 98.7 71 18 97 Room Air Laboratory Data CBC/BMP Laboratory Tests 06/09/20 05:51 Labs 24H Laboratory Tests 2 06/08/20 12:18: Bedside Glucose (Misc Panel) 184H 06/08/20 16:19: Bedside Glucose (Misc Panel) 109 06/08/20 19:43: Bedside Glucose (Misc Panel) 187H 06/09/20 05:51: Anion Gap 7L, Glomerular Filtration Rate 57.6, Calcium Level 8.4L 06/09/20 06:19: Bedside Glucose (Misc Panel) 154H Current Medications Current Medications Current Medications Medications (Trade) Dose Ordered Sig/Shasha Route PRN Reason Start Time Stop Time Status Last Admin Dose Admin Acetaminophen (Tylenol Tab) 1,000 mg TID PO 06/02/20 21:00 06/09/20 07:50 Amlodipine Besylate (Norvasc) 5 mg BID PO 06/08/20 21:00 06/09/20 07:49 Aspirin (Ecotrin) 81 mg DAILY PO 06/03/20 11:00 06/09/20 07:49 Bisacodyl (Dulcolax Suppository) 10 mg DAILYPRN PRN [place] CONSTIPATION 06/02/20 14:30 Dextrose (Dextrose 50%) 25 ml ASDIRECTED PRN IV SEE LABEL COMMENTS 06/02/20 14:30 Docusate Sodium (Colace) 100 mg BID PO 06/02/20 21:00 06/09/20 07:49 Gabapentin (Neurontin) 100 mg TID PO 06/05/20 16:00 06/08/20 09:31 DC 06/07/20 21:12 Glipizide (Glucotrol Xl) 5 mg DAILY@0730 PO 06/06/20 07:30 06/09/20 07:47 Glucagon (Glucagon) 1 mg ASDIRECTED PRN SC SEE LABEL COMMENTS 06/02/20 14:30 Glucose (Glucose) 16 GM ASDIRECTED PRN PO SEE LABEL COMMENTS 06/02/20 14:30 Home Med (Med Rec Complete!) ASDIRECTED XX 06/02/20 20:30 06/02/20 20:21 DC Hydralazine HCl (Apresoline) 10 mg TID PO 06/08/20 16:00 Insulin Human Lispro (HumaLOG INSULIN) SEE PROTOCOL TABLE AC SC 06/03/20 07:30 06/09/20 07:48 Insulin Human Lispro (HumaLOG INSULIN) SEE PROTOCOL TABLE QHS SC 06/02/20 21:00 Lidocaine (Lidoderm Patch) 1 patch DAILY TD 06/04/20 12:15 06/05/20 14:17 DC 06/05/20 08:17 Lisinopril (Prinivil) 10 mg DAILY PO 06/03/20 11:00 06/08/20 09:36 DC 06/08/20 07:59 Losartan Potassium (Cozaar) 25 mg DAILY PO 06/03/20 09:00 06/08/20 09:36 DC 06/08/20 08:00 Menthol/Methyl Salicylate (Bengay Cream) left anterior ... TID TOP 06/05/20 16:00 06/09/20 07:50 Non-Formulary Medication ( See Comment Field Below ) REMOVE LIDODERM PATCH DAILY@21 XX 06/04/20 21:00 06/05/20 14:17 DC 06/04/20 20:43 Olanzapine (ZyPREXA) 2.5 mg Q6HP PRN PO AGITATION 06/08/20 09:45 Omeprazole (PriLOSEC) 20 mg DAILY PO 06/03/20 09:00 06/09/20 07:49 Rivaroxaban (Xarelto) 10 mg DAILY@1800 PO 06/02/20 18:00 06/08/20 17:00 Senna (Senokot) 1 tab QHS PO 06/02/20 21:00 06/08/20 20:27 Sertraline HCl (Zoloft) 25 mg DAILY PO 06/03/20 09:00 06/09/20 07:49 Tramadol HCl (Ultram) 50 mg Q4HP PRN PO MODERATE PAIN (PS 5-7) 06/02/20 14:30 06/03/20 14:19 DC Vitamin B Complex/ Vitamin C (Therapeutic B Complex w/C) 1 cap DAILY PO 06/05/20 10:30 06/09/20 07:49 NINOSKA VARGHESE MD Jun 09, 2020 10:44
--- NOTE | 2020-06-09 10:47 | IPNPDOC ---
PM&R Progress Note DATE OF SERVICE: Jun 08, 2020 [employer] Progress Note SUbjective: Patient reporting he feels well, has not had any further episodes of confusion and is feeling ready to go home on Monday. REVIEW OF SYSTEMS: The following is a completed review of systems and has been reviewed. Review of systems otherwise unremarkable. PAIN: Patient self reports left hip pain EYES: No recent vision changes EARS, NOSE, & THROAT: No throat pain, or dysphagia, or rhinorrhea CARDIOVASCULAR: Denies chest pain or palpitations PULMONARY: Denies shortness of breath GASTROINTESTINAL: Denies constipation/diarrhea GENITOURINARY: denies dysuria MUSCULOSKELETAL: s/p left hip fracture NEUROLOGICAL:denies tremor, +dementia? HEMATOLOGICAL: denies easy bruising SKIN: left hip incision PSYCHIATRIC: unremarkable All other review of systems found to be negative. PHYSICAL EXAMINATION: VITAL SIGNS: Please see below. GENERAL: Pleasant and cooperative. No acute distress. HEENT: PERRL. Extraocular movements intact. Clear conjunctiva CARDIOVASCULAR: Regular rate and rhythm. No murmurs, rubs, or gallops LUNGS: Clear to auscultation bilaterally. No wheezes. No rhonchi ABDOMEN: Soft, nontender, nondistended. Positive bowel sounds. Normal active bowel sounds NEUROLOGICAL: Alert and oriented times three, able to follow commands, however slow to respond. Cranial nerves II through XII grossly intact. Sensation grossly intact EXTREMITIES: 5\5 strength bilateral upper extremities. 5\5 strength right lower extremity. 5/5 left ankle DF/EHL and PF (limited due to recent surgery) SKIN: left hip incision without drainage, periwound with no indur ation/ecchymosis ASSESSMENT:89-year-old M with past medical history of colon resection, HTN who p resents status post left hip fracture PLAN: 1. Rehab- PT/oT advance mobility and ADLs, PWB 50% to LLE, strengthen/stretch/maintain ROM all 4limbs 2. Cardiac- hx of HTN, d/c'd HEMANTH-I and ARB in setting of ANTOINETTE and started amlodipine with hydralazine as backup with holding parameters, BPs well control led, and ANTOINETTE resolving, c/u to monitor BPs -c/u ASA for cardioprotection -medicine consulted to assist in overall management 3. Resp- DENISE c/u CPAP at night, encourage incentive spirometry, monitor for infection 4. Endo- hx of DM c/u ISS and monitor FS, patient on glipizide at home 5. GI- hx of colon resection, c/u prilosec for ppx, bowel meds 6. -monitor PVRs 7. ortho- s.p left hip ORIF, PWB, f/u ortho as outpatient 8. DVT ppx- xarelto and teds 9. Pain- tylenol, holding opioids to avoid delirium, c/u menthol salicylate rub , d/c'd low dose gabapentin as may have contributed to patient's recent agitation, Zyprexa ordered prn for sun-downing 10. 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 Dispo- tbd Allergies Coded Allergies: morphine (Verified Adverse Reaction, Intermediate, kleber, 05/29/20) Vital Signs Vital Signs Date Time Temp Pulse Resp B/P (MAP) Pulse Ox O2 Delivery O2 Flow Rate FiO2 06/09/20 07:48 130/70 06/09/20 05:53 98.7 71 18 97 Room Air Laboratory Data CBC/BMP Laboratory Tests 06/09/20 05:51 Labs 24H Laboratory Tests 2 06/08/20 12:18: Bedside Glucose (Misc Panel) 184H 06/08/20 16:19: Bedside Glucose (Misc Panel) 109 06/08/20 19:43: Bedside Glucose (Misc Panel) 187H 06/09/20 05:51: Anion Gap 7L, Glomerular Filtration Rate 57.6, Calcium Level 8.4L 06/09/20 06:19: Bedside Glucose (Misc Panel) 154H Current Medications Current Medications Current Medications Medications (Trade) Dose Ordered Sig/Shasha Route PRN Reason Start Time Stop Time Status Last Admin Dose Admin Acetaminophen (Tylenol Tab) 1,000 mg TID PO 06/02/20 21:00 06/09/20 07:50 Amlodipine Besylate (Norvasc) 5 mg BID PO 06/08/20 21:00 06/09/20 07:49 Aspirin (Ecotrin) 81 mg DAILY PO 06/03/20 11:00 06/09/20 07:49 Bisacodyl (Dulcolax Suppository) 10 mg DAILYPRN PRN [place] CONSTIPATION 06/02/20 14:30 Dextrose (Dextrose 50%) 25 ml ASDIRECTED PRN IV SEE LABEL COMMENTS 06/02/20 14:30 Docusate Sodium (Colace) 100 mg BID PO 06/02/20 21:00 06/09/20 07:49 Gabapentin (Neurontin) 100 mg TID PO 06/05/20 16:00 06/08/20 09:31 DC 06/07/20 21:12 Glipizide (Glucotrol Xl) 5 mg DAILY@0730 PO 06/06/20 07:30 06/09/20 07:47 Glucagon (Glucagon) 1 mg ASDIRECTED PRN SC SEE LABEL COMMENTS 06/02/20 14:30 Glucose (Glucose) 16 GM ASDIRECTED PRN PO SEE LABEL COMMENTS 06/02/20 14:30 Home Med (Med Rec Complete!) ASDIRECTED XX 06/02/20 20:30 06/02/20 20:21 DC Hydralazine HCl (Apresoline) 10 mg TID PO 06/08/20 16:00 Insulin Human Lispro (HumaLOG INSULIN) SEE PROTOCOL TABLE AC SC 06/03/20 07:30 06/09/20 07:48 Insulin Human Lispro (HumaLOG INSULIN) SEE PROTOCOL TABLE QHS SC 06/02/20 21:00 Lidocaine (Lidoderm Patch) 1 patch DAILY TD 06/04/20 12:15 06/05/20 14:17 DC 06/05/20 08:17 Lisinopril (Prinivil) 10 mg DAILY PO 06/03/20 11:00 06/08/20 09:36 DC 06/08/20 07:59 Losartan Potassium (Cozaar) 25 mg DAILY PO 06/03/20 09:00 06/08/20 09:36 DC 06/08/20 08:00 Menthol/Methyl Salicylate (Bengay Cream) left anterior ... TID TOP 06/05/20 16:00 06/09/20 07:50 Non-Formulary Medication ( See Comment Field Below ) REMOVE LIDODERM PATCH DAILY@21 XX 06/04/20 21:00 06/05/20 14:17 DC 06/04/20 20:43 Olanzapine (ZyPREXA) 2.5 mg Q6HP PRN PO AGITATION 06/08/20 09:45 Omeprazole (PriLOSEC) 20 mg DAILY PO 06/03/20 09:00 06/09/20 07:49 Rivaroxaban (Xarelto) 10 mg DAILY@1800 PO 06/02/20 18:00 06/08/20 17:00 Senna (Senokot) 1 tab QHS PO 06/02/20 21:00 06/08/20 20:27 Sertraline HCl (Zoloft) 25 mg DAILY PO 06/03/20 09:00 06/09/20 07:49 Tramadol HCl (Ultram) 50 mg Q4HP PRN PO MODERATE PAIN (PS 5-7) 06/02/20 14:30 06/03/20 14:19 DC Vitamin B Complex/ Vitamin C (Therapeutic B Complex w/C) 1 cap DAILY PO 06/05/20 10:30 06/09/20 07:49 NINOSKA VARGHESE MD Jun 09, 2020 10:47
[2020-06-09 14:00] VITALS: BP 129/70
--- NOTE | 2020-06-09 14:57 | IPNPDOC ---
Text Note Date of Service The patient was seen on 06/09/20. NOTE No any acute events overnight, tolerating rehab well. Physical Exam GENERAL APPEARANCE: NAD HEENT: no scleral icterus, no JVD, EOMI CARDIOVASCULAR: S1S2 LUNGS: Diminished lung sounds bilaterally ABDOMEN: soft & not tender w palpitation MUSCULOSKELETAL: no cyanosis, no swelling, pulsation intact, tenderness over left hip INTEGUMENT: no generalized pallor NEUROLOGICAL: cranial nerve function from 2-12 intact intact, follows commands, speech not dysarthric Assessment and plan Mr. Dejesus was carrying a stack of dishes from his dining room into his kitchen to be washed when he lost his balance and fell to his right side. During the fall he landed on his left hip and does think he might of bumped his head but he did not lose consciousness. After the fall he had significant pain in his left hip/groin. He was brought to the emergency department for further evaluation and treatment. Orth team did surgery for left hip fracture on 05/31/20, patient was transferred to acute rehabilitation unit 1) Close left hip fracture: Orth team did surgery on 05/31/20, PT/OT. 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 CEA within normal limit, out patient primary onc followup 3) DENISE treated with BiPAP: Continuing treatment with BiPAP overnight 4) Type 2 diabetes: Diabetes diet, Insulin sliding scale 5) Hypertension: Continue amlo and hydralazile. HEMANTH inhibitors on hold as Cr bumped a little. 6) Anemia of chronic diseases: Hemoglobin stable, Follow-up with PCP in the outpatient settings 7) Deconditioning: Secondary to hip fracture. PT/OT Disposition as per primary VS,Fishbone, I+O VS, Fishbone, I+O Laboratory Tests 06/09/20 05:51 Vital Signs Date Time Temp Pulse Resp B/P (MAP) Pulse Ox O2 Delivery O2 Flow Rate FiO2 06/09/20 14:00 98.6 82 17 129/70 (89) 93 Room Air I&O- Last 24 Hours up to 6 AM 06/09/20 06:00 Intake Total 1610 ml Balance 1610 ml MICHELLE SCHMITT MD Jun 09, 2020 14:57
[2020-06-09] MEDS: RIVAROXABAN 10 MG TAB (XARELTO) PO SCH (17:24)
[2020-06-09] MEDS: SENNA 8.6 MG TAB (SENOKOT) PO SCH (19:40)
[2020-06-09 20:00] VITALS: BP 128/65
[2020-06-10 06:00] VITALS: BP 151/75
[2020-06-10 06:55] LABS: BASO % 0.6 % (0.0-1.0); EOS # 0.2 10^3/uL (0.0-0.5); EOS % 3.4 % (0.0-3.0); HEMATOCRIT 36.5 % (42.0-52.0); HEMOGLOBIN 11.5 g/dl (13.5-17.5); LYMPH # 1.9 10^3/uL (1.5-5.0); MEAN CORPUSCULAR HEMOGLOBIN 25.5 pg (27.0-33.0); MEAN CORPUSCULAR HGB CONC 31.5 g/dl (32.0-36.5); MEAN CORPUSCULAR VOLUME 80.9 fl (80.0-96.0); MONO # 0.5 10^3/uL (0.0-0.8); MONO % 6.9 % (2.0-8.0); NEUTROPHILS % 59.4 % (36.0-66.0); PLATELET COUNT, AUTOMATED 233 10^3/uL (150-450); RED BLOOD COUNT 4.51 10^6/uL (4.30-6.10); WHITE BLOOD COUNT 6.7 10^3/uL (4.0-10.0)
[2020-06-10 07:19] LABS: BLOOD UREA NITROGEN 21 MG/DL (7-18); CALCIUM LEVEL 8.8 MG/DL (8.8-10.2); CARBON DIOXIDE LEVEL 28 MEQ/L (21-32); CHLORIDE LEVEL 103 MEQ/L (98-107); CREATININE FOR GFR 1.17 MG/DL (0.70-1.30); GLOMERULAR FILTRATION RATE > 60.0 (>35); GLUCOSE, FASTING 159 MG/DL (70-100); POTASSIUM SERUM 4.3 MEQ/L (3.5-5.1); SODIUM LEVEL 138 MEQ/L (136-145)
[2020-06-10] MEDS: VITAMIN B COMPLEX/VIT C CAP PO SCH (08:09)
[2020-06-10] MEDS: ASPIRIN 81 MG ENTERIC TAB PO SCH (08:09)
[2020-06-10] MEDS: ACETAMINOPHEN 500 MG TAB PO SCH ×3 (08:10→21:50)
[2020-06-10] MEDS: amLODIPine 5 MG TAB PO SCH ×2 (08:12→21:49)
[2020-06-10] MEDS: DOCUSATE SODIUM 100MG CAPSULE PO SCH ×2 (08:13→21:49)
[2020-06-10] MEDS: **hydrALAZINE** 10 MG TAB PO SCH ×3 (08:13→21:49)
[2020-06-10] MEDS: glipiZIDE XL 5 MG TABCR PO SCH (08:13)
[2020-06-10] MEDS: SERTRALINE HCL 25 MG TABLET PO SCH (08:14)
[2020-06-10] MEDS: ANALGESIC BALM CRM 120 GM TOP SCH ×3 (08:18→21:50)
[2020-06-10] MEDS: OMEPRAZOLE 20 MG CAP PO SCH (08:21)
[2020-06-10] MEDS ORDERED: ASPI81TA26 PO (10:39)
[2020-06-10] MEDS ORDERED: GLIP5TAB20 PO (10:39)
[2020-06-10] MEDS ORDERED: SERT25TA85 PO (10:39)
[2020-06-10] MEDS ORDERED: XARE10TA PO (10:39)
[2020-06-10] MEDS ORDERED: AMLO1TAB24 PO (10:39)
[2020-06-10] MEDS ORDERED: OMEP-218 PO (10:39)
--- NOTE | 2020-06-10 10:43 | IPNPDOC ---
PM&R Progress Note DATE OF SERVICE: Jun 10, 2020 [employer] Progress Note Subjective: Patient reporting his knee caps feel sore left greater than right and that he has been up all night urinating and that this has been an issue for some time. REVIEW OF SYSTEMS: The following is a completed review of systems and has been reviewed. Review of systems otherwise unremarkable. PAIN: Patient self reports left hip pain EYES: No recent vision changes EARS, NOSE, & THROAT: No throat pain, or dysphagia, or rhinorrhea CARDIOVASCULAR: Denies chest pain or palpitations PULMONARY: Denies shortness of breath GASTROINTESTINAL: Denies constipation/diarrhea GENITOURINARY: denies dysuria MUSCULOSKELETAL: s/p left hip fracture NEUROLOGICAL:denies tremor, +dementia? HEMATOLOGICAL: denies easy bruising SKIN: left hip incision PSYCHIATRIC: unremarkable All other review of systems found to be negative. PHYSICAL EXAMINATION: VITAL SIGNS: Please see below. GENERAL: Pleasant and cooperative. No acute distress. HEENT: PERRL. Extraocular movements intact. Clear conjunctiva CARDIOVASCULAR: Regular rate and rhythm. No murmurs, rubs, or gallops LUNGS: Clear to auscultation bilaterally. No wheezes. No rhonchi ABDOMEN: Soft, nontender, nondistended. Positive bowel sounds. Normal active bowel sounds NEUROLOGICAL: Alert and oriented times three, able to follow commands, however slow to respond. Cranial nerves II through XII grossly intact. Sensation grossly intact EXTREMITIES: 5\5 strength bilateral upper extremities. 5\5 strength right lower extremity. 5/5 left ankle DF/EHL and PF (limited due to recent surgery) SKIN: left hip incision without drainage, periwound with no induration/ecchymosis ASSESSMENT:89-year-old M with past medical history of colon resection, HTN who presents status post left hip fracture PLAN: 1. Rehab- PT/oT advance mobility and ADLs, PWB 50% to LLE, strengthen/stretch/maintain ROM all 4limbs 2. Cardiac- hx of HTN, d/c'd HEMANTH-I and ARB in setting of ANTOINETTE and started amlodipine with hydralazine as backup with holding parameters, BPs well controlled, and ANTOINETTE resolving, c/u to monitor BPs -c/u ASA for cardioprotection -medicine consulted to assist in overall management 3. Resp- DENISE c/u CPAP at night, encourage incentive spirometry, monitor for infection 4. Endo- hx of DM c/u ISS and monitor FS, patient on glipizide at home 5. GI- hx of colon resection, c/u prilosec for ppx, bowel meds 6. -monitor PVRs, will start flomax for suspected BPH and monitor 7. ortho- s.p left hip ORIF, PWB, f/u ortho as outpatient 8. DVT ppx- xarelto and teds 9. Pain- tylenol, holding opioids to avoid delirium, c/u menthol salicylate rub , d/c'd low dose gabapentin as may have contributed to patient's recent agitation, flector patch 10. Psych- Zoloft for depression, per patient's family he has memory impairment that are not new -Zyprexa ordered prn for sun-downing 11. Dispo- tbd Allergies Coded Allergies: morphine (Verified Adverse Reaction, Intermediate, kleber, 05/29/20) Vital Signs Vital Signs Date Time Temp Pulse Resp B/P (MAP) Pulse Ox O2 Delivery O2 Flow Rate FiO2 06/10/20 08:13 150/75 06/10/20 08:12 87 06/10/20 06:00 98.2 18 95 Room Air Laboratory Data CBC/BMP Laboratory Tests 06/10/20 06:00 Labs 24H Laboratory Tests 2 06/09/20 16:44: Bedside Glucose (Misc Panel) 141H 06/10/20 06:00: Immature Granulocyte % (Auto) 0.7, Neutrophils (%) (Auto) 59.4, Lymphocytes (%) (Auto) 29.0, Monocytes (%) (Auto) 6.9, Eosinophils (%) (Auto) 3.4H, Basophils (%) (Auto) 0.6, Neutrophils # (Auto) 4.0, Lymphocytes # (Auto) 1.9, Monocytes # (Auto) 0.5, Eosinophils # (Auto) 0.2, Basophils # (Auto) 0.0, Nucleated Red Blood Cells % (auto) 0.0, Anion Gap 7L, Glomerular Filtration Rate > 60.0, Calcium Level 8.8 06/10/20 06:10: Bedside Glucose (Misc Panel) 149H Current Medications Current Medications Current Medications Medications (Trade) Dose Ordered Sig/Shasha Route PRN Reason Start Time Stop Time Status Last Admin Dose Admin Acetaminophen (Tylenol Tab) 1,000 mg TID PO 06/02/20 21:00 06/10/20 08:10 Amlodipine Besylate (Norvasc) 5 mg BID PO 06/08/20 21:00 06/10/20 08:12 Aspirin (Ecotrin) 81 mg DAILY PO 06/03/20 11:00 06/10/20 08:09 Bisacodyl (Dulcolax Suppository) 10 mg DAILYPRN PRN [place] CONSTIPATION 06/02/20 14:30 Dextrose (Dextrose 50%) 25 ml ASDIRECTED PRN IV SEE LABEL COMMENTS 06/02/20 14:30 Docusate Sodium (Colace) 100 mg BID PO 06/02/20 21:00 06/10/20 08:13 Gabapentin (Neurontin) 100 mg TID PO 06/05/20 16:00 06/08/20 09:31 DC 06/07/20 21:12 Glipizide (Glucotrol Xl) 5 mg DAILY@0730 PO 06/06/20 07:30 06/10/20 08:13 Glucagon (Glucagon) 1 mg ASDIRECTED PRN SC SEE LABEL COMMENTS 06/02/20 14:30 Glucose (Glucose) 16 GM ASDIRECTED PRN PO SEE LABEL COMMENTS 06/02/20 14:30 Home Med (Med Rec Complete!) ASDIRECTED XX 06/02/20 20:30 06/02/20 20:21 DC Hydralazine HCl (Apresoline) 10 mg TID PO 06/08/20 16:00 06/10/20 08:13 Insulin Human Lispro (HumaLOG INSULIN) SEE PROTOCOL TABLE AC SC 06/03/20 07:30 06/09/20 10:40 DC 06/09/20 07:48 Insulin Human Lispro (HumaLOG INSULIN) SEE PROTOCOL TABLE QHS SC 06/02/20 21:00 06/09/20 10:40 DC Lidocaine (Lidoderm Patch) 1 patch DAILY TD 06/04/20 12:15 06/05/20 14:17 DC 06/05/20 08:17 Lisinopril (Prinivil) 10 mg DAILY PO 06/03/20 11:00 06/08/20 09:36 DC 06/08/20 07:59 Losartan Potassium (Cozaar) 25 mg DAILY PO 06/03/20 09:00 06/08/20 09:36 DC 06/08/20 08:00 Menthol/Methyl Salicylate (Bengay Cream) left anterior ... TID TOP 06/05/20 16:00 06/10/20 08:18 Non-Formulary Medication ( See Comment Field Below ) REMOVE LIDODERM PATCH DAILY@21 XX 06/04/20 21:00 06/05/20 14:17 DC 06/04/20 20:43 Olanzapine (ZyPREXA) 2.5 mg Q6HP PRN PO AGITATION 06/08/20 09:45 Omeprazole (PriLOSEC) 20 mg DAILY PO 06/03/20 09:00 06/10/20 08:21 Rivaroxaban (Xarelto) 10 mg DAILY@1800 PO 06/02/20 18:00 06/09/20 17:24 Senna (Senokot) 1 tab QHS PO 06/02/20 21:00 06/08/20 20:27 Sertraline HCl (Zoloft) 25 mg DAILY PO 06/03/20 09:00 06/10/20 08:14 Tramadol HCl (Ultram) 50 mg Q4HP PRN PO MODERATE PAIN (PS 5-7) 06/02/20 14:30 06/03/20 14:19 DC Vitamin B Complex/ Vitamin C (Therapeutic B Complex w/C) 1 cap DAILY PO 06/05/20 10:30 06/10/20 08:09 NINOSKA VARGHESE MD Jun 10, 2020 10:43
[2020-06-10 14:00] VITALS: BP 115/81
[2020-06-10 16:21] VITALS: BP 118/75
[2020-06-10] MEDS: RIVAROXABAN 10 MG TAB (XARELTO) PO SCH (17:03)
[2020-06-10] MEDS: DICLOFENAC EPOLAMINE 1.3 % PATCH TOP SCH ×2 (17:03→21:00)
[2020-06-10] MEDS: SENNA 8.6 MG TAB (SENOKOT) PO SCH (21:49)
[2020-06-10] MEDS: TAMSULOSIN 0.4 MG CAP PO SCH (21:50)
[2020-06-10 22:00] VITALS: BP 151/77
[2020-06-10] MEDS: OLANZapine 2.5MG TABLET PO PRN (22:29)
[2020-06-11 06:00] VITALS: BP 138/67
--- NOTE | 2020-06-11 06:57 | IPNPDOC ---
PM&R Progress Note DATE OF SERVICE: Jun 11, 2020 Public Health Professor Progress Note Subjective: Patient reporting improvement in his urinary frequency since starting flomax. REVIEW OF SYSTEMS: The following is a completed review of systems and has been reviewed. Review of systems otherwise unremarkable. PAIN: Patient self reports left hip pain EYES: No recent vision changes EARS, NOSE, & THROAT: No throat pain, or dysphagia, or rhinorrhea CARDIOVASCULAR: Denies chest pain or palpitations PULMONARY: Denies shortness of breath GASTROINTESTINAL: Denies constipation/diarrhea GENITOURINARY: denies dysuria MUSCULOSKELETAL: s/p left hip fracture NEUROLOGICAL:denies tremor, +dementia? HEMATOLOGICAL: denies easy bruising SKIN: left hip incision PSYCHIATRIC: unremarkable All other review of systems found to be negative. PHYSICAL EXAMINATION: VITAL SIGNS: Please see below. GENERAL: Pleasant and cooperative. No acute distress. HEENT: PERRL. Extraocular movements intact. Clear conjunctiva CARDIOVASCULAR: Regular rate and rhythm. No murmurs, rubs, or gallops LUNGS: Clear to auscultation bilaterally. No wheezes. No rhonchi ABDOMEN: Soft, nontender, nondistended. Positive bowel sounds. Normal active bowel sounds NEUROLOGICAL: Alert and oriented times three, able to follow commands, however slow to respond. Cranial nerves II through XII grossly intact. Sensation grossly intact EXTREMITIES: 5\5 strength bilateral upper extremities. 5\5 strength right lower extremity. 5/5 left ankle DF/EHL and PF (limited due to recent surgery) SKIN: left hip incision without drainage, periwound with no induration/e cchymosis ASSESSMENT:89-year-old M with past medical history of colon resection, HTN who presents status post left hip fracture PLAN: 1. Rehab- PT/oT advance mobility and ADLs, PWB 50% to LLE, strengthen/stretch/maintain ROM all 4limbs 2. Cardiac- hx of HTN, d/c'd HEMANTH-I and ARB in setting of ANTOINETTE and started amlodipine with hydralazine as backup with holding parameters, BPs well controlled, and ANTOINETTE resolving, c/u to monitor BPs -c/u ASA for cardioprotection -medicine consulted to assist in overall management 3. Resp- DENISE c/u CPAP at night, encourage incentive spirometry, monitor for infection 4. Endo- hx of DM c/u ISS and monitor FS, patient on glipizide at home 5. GI- hx of colon resection, c/u prilosec for ppx, bowel meds 6. -monitor PVRs, will start flomax for suspected BPH and monitor 7. ortho- s.p left hip ORIF, PWB, f/u ortho as outpatient 8. DVT ppx- xarelto and teds 9. Pain- tylenol, holding opioids to avoid delirium, c/u menthol salicylate rub , d/c'd low dose gabapentin as may have contributed to patient's recent agitation, flector patch 10. Psych- Zoloft for depression, per patient's family he has memory impairment that are not new -Zyprexa ordered prn for sun-downing 11. Dispo- tbd Allergies Coded Allergies: morphine (Verified Adverse Reaction, Intermediate, kleber, 05/29/20) Vital Signs Vital Signs Date Time Temp Pulse Resp B/P (MAP) Pulse Ox O2 Delivery O2 Flow Rate FiO2 06/11/20 06:00 97.9 71 20 138/67 (90) 98 Room Air Laboratory Data Labs 24H Laboratory Tests 2 06/10/20 16:52: Bedside Glucose (Misc Panel) 196H Current Medications Current Medications Current Medications Medications (Trade) Dose Ordered Sig/Shasha Route PRN Reason Start Time Stop Time Status Last Admin Dose Admin Acetaminophen (Tylenol Tab) 1,000 mg TID PO 06/02/20 21:00 06/10/20 21:50 Amlodipine Besylate (Norvasc) 5 mg BID PO 06/08/20 21:00 06/10/20 21:49 Aspirin (Ecotrin) 81 mg DAILY PO 06/03/20 11:00 06/10/20 08:09 Bisacodyl (Dulcolax Suppository) 10 mg DAILYPRN PRN SD CONSTIPATION 06/02/20 14:30 Dextrose (Dextrose 50%) 25 ml ASDIRECTED PRN IV SEE LABEL COMMENTS 06/02/20 14:30 Diclofenac Epolamine (Flector 1.3%) 1 patch Q12H TOP 06/10/20 09:00 06/10/20 17:03 Docusate Sodium (Colace) 100 mg BID PO 06/02/20 21:00 06/10/20 21:49 Gabapentin (Neurontin) 100 mg TID PO 06/05/20 16:00 06/08/20 09:31 DC 06/07/20 21:12 Glipizide (Glucotrol Xl) 5 mg DAILY@0730 PO 06/06/20 07:30 06/10/20 08:13 Glucagon (Glucagon) 1 mg ASDIRECTED PRN SC SEE LABEL COMMENTS 06/02/20 14:30 Glucose (Glucose) 16 GM ASDIRECTED PRN PO SEE LABEL COMMENTS 06/02/20 14:30 Home Med (Med Rec Complete!) ASDIRECTED XX 06/02/20 20:30 06/02/20 20:21 DC Hydralazine HCl (Apresoline) 10 mg TID PO 06/08/20 16:00 06/10/20 21:49 Insulin Human Lispro (HumaLOG INSULIN) SEE PROTOCOL TABLE AC SC 06/03/20 07:30 06/09/20 10:40 DC 06/09/20 07:48 Insulin Human Lispro (HumaLOG INSULIN) SEE PROTOCOL TABLE QHS SC 06/02/20 21:00 06/09/20 10:40 DC Lidocaine (Lidoderm Patch) 1 patch DAILY TD 06/04/20 12:15 06/05/20 14:17 DC 06/05/20 08:17 Lisinopril (Prinivil) 10 mg DAILY PO 06/03/20 11:00 06/08/20 09:36 DC 06/08/20 07:59 Losartan Potassium (Cozaar) 25 mg DAILY PO 06/03/20 09:00 06/08/20 09:36 DC 06/08/20 08:00 Menthol/Methyl Salicylate (Bengay Cream) left anterior ... TID TOP 06/05/20 16:00 06/10/20 21:50 Non-Formulary Medication ( See Comment Field Below ) REMOVE LIDODERM PATCH DAILY@21 XX 06/04/20 21:00 06/05/20 14:17 DC 06/04/20 20:43 Olanzapine (ZyPREXA) 2.5 mg Q6HP PRN PO AGITATION 06/08/20 09:45 06/10/20 22:29 Omeprazole (PriLOSEC) 20 mg DAILY PO 06/03/20 09:00 06/10/20 08:21 Rivaroxaban (Xarelto) 10 mg DAILY@1800 PO 06/02/20 18:00 06/10/20 17:03 Senna (Senokot) 1 tab QHS PO 06/02/20 21:00 06/10/20 21:49 Sertraline HCl (Zoloft) 25 mg DAILY PO 06/03/20 09:00 06/10/20 08:14 Tamsulosin HCl (Flomax) 0.4 mg QHS PO 06/10/20 21:00 06/10/20 21:50 Tramadol HCl (Ultram) 50 mg Q4HP PRN PO MODERATE PAIN (PS 5-7) 06/02/20 14:30 06/03/20 14:19 DC Vitamin B Complex/ Vitamin C (Therapeutic B Complex w/C) 1 cap DAILY PO 06/05/20 10:30 06/10/20 08:09 NINOSKA VARGHESE MD Jun 11, 2020 06:57
[2020-06-11] MEDS: ACETAMINOPHEN 500 MG TAB PO SCH ×3 (08:00→21:17)
[2020-06-11] MEDS: DOCUSATE SODIUM 100MG CAPSULE PO SCH ×2 (08:00→21:15)
[2020-06-11] MEDS: ASPIRIN 81 MG ENTERIC TAB PO SCH (08:00)
[2020-06-11] MEDS: glipiZIDE XL 5 MG TABCR PO SCH (08:00)
[2020-06-11] MEDS: OMEPRAZOLE 20 MG CAP PO SCH (08:01)
[2020-06-11] MEDS: amLODIPine 5 MG TAB PO SCH ×2 (08:03→21:16)
[2020-06-11] MEDS: **hydrALAZINE** 10 MG TAB PO SCH ×3 (08:03→21:16)
[2020-06-11] MEDS: SERTRALINE HCL 25 MG TABLET PO SCH (08:11)
[2020-06-11] MEDS: VITAMIN B COMPLEX/VIT C CAP PO SCH (08:11)
[2020-06-11] MEDS: ANALGESIC BALM CRM 120 GM TOP SCH ×3 (08:12→21:17)
[2020-06-11] MEDS: DICLOFENAC EPOLAMINE 1.3 % PATCH TOP SCH ×2 (08:16→21:15)
[2020-06-11 14:00] VITALS: BP 141/72
--- NOTE | 2020-06-11 16:44 | IPNPDOC ---
Text Note Date of Service The patient was seen on 06/11/20. NOTE No any acute events overnight. Participating in therapy well Physical Exam GENERAL APPEARANCE: NAD HEENT: no scleral icterus, no JVD, EOMI CARDIOVASCULAR: S1S2 LUNGS: Diminished lung sounds bilaterally ABDOMEN: soft & not tender w palpitation MUSCULOSKELETAL: no cyanosis, no swelling, pulsation intact, tenderness over left hip INTEGUMENT: no generalized pallor NEUROLOGICAL: cranial nerve function from 2-12 intact intact, follows commands, speech not dysarthric Assessment and plan Mr. Dejesus was carrying a stack of dishes from his dining room into his kitchen to be washed when he lost his balance and fell to his right side. During the fall he landed on his left hip and does think he might of bumped his head but he did not lose consciousness. After the fall he had significant pain in his left hip/groin. He was brought to the emergency department for further evaluation and treatment. Orth team did surgery for left hip fracture on 05/31/20, patient was transferred to acute rehabilitation unit 1) Close left hip fracture: Orth team did surgery on 05/31/20, PT/OT. 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 CEA within normal limit, out patient primary onc followup 3) DENISE treated with BiPAP: Continuing treatment with BiPAP overnight 4) Type 2 diabetes: Diabetes diet, Insulin sliding scale 5) Hypertension: Continue amlo and hydralazile. HEMANTH inhibitors on hold as Cr bumped a little. 6) Anemia of chronic diseases: Hemoglobin stable, Follow-up with PCP in the outpatient settings 7) Deconditioning: Secondary to hip fracture. PT/OT Disposition as per primary VS,Fishbone, I+O VS, Fishbone, I+O Vital Signs Date Time Temp Pulse Resp B/P (MAP) Pulse Ox O2 Delivery O2 Flow Rate FiO2 06/11/20 16:03 142/66 06/11/20 14:00 97.9 96 18 96 Room Air I&O- Last 24 Hours up to 6 AM 06/11/20 06:00 Intake Total 900 ml Balance 900 ml MICHELLE SCHMITT MD Jun 11, 2020 16:44
[2020-06-11] MEDS: RIVAROXABAN 10 MG TAB (XARELTO) PO SCH (17:45)
[2020-06-11 20:00] VITALS: BP 147/84
[2020-06-11] MEDS: TAMSULOSIN 0.4 MG CAP PO SCH (21:15)
[2020-06-11] MEDS: OLANZapine 2.5MG TABLET PO PRN (21:15)
[2020-06-11] MEDS: SENNA 8.6 MG TAB (SENOKOT) PO SCH (21:16)
[2020-06-12 05:17] VITALS: BP 143/88
[2020-06-12] MEDS ORDERED: FLOM0.4C39 PO (07:31)
[2020-06-12] MEDS: DICLOFENAC EPOLAMINE 1.3 % PATCH TOP SCH (08:07)
[2020-06-12 08:09] VITALS: BP 138/68
[2020-06-12] MEDS: OMEPRAZOLE 20 MG CAP PO SCH (08:09)
[2020-06-12] MEDS: **hydrALAZINE** 10 MG TAB PO SCH (08:09)
[2020-06-12] MEDS: ASPIRIN 81 MG ENTERIC TAB PO SCH (08:09)
[2020-06-12] MEDS: ACETAMINOPHEN 500 MG TAB PO SCH (08:09)
[2020-06-12] MEDS: VITAMIN B COMPLEX/VIT C CAP PO SCH (08:10)
[2020-06-12] MEDS: SERTRALINE HCL 25 MG TABLET PO SCH (08:10)
[2020-06-12] MEDS: DOCUSATE SODIUM 100MG CAPSULE PO SCH (08:10)
[2020-06-12] MEDS: amLODIPine 5 MG TAB PO SCH (08:10)
[2020-06-12] MEDS: glipiZIDE XL 5 MG TABCR PO SCH (08:10)
[2020-06-12] MEDS: ANALGESIC BALM CRM 120 GM TOP SCH (08:11)
--- NOTE | 2020-06-12 12:02 | PMRDS ---
NAME: RAY GONZALEZ [facility] WT ID#: [id number] JOB: [id number] NADIA: 06/02/2020 ACCT: [id number] DOCTOR: NINOSKA VARGHESE MD PMR DISCHARGE SUMMARY DATE OF ADMISSION: 06/02/2020 DATE OF DISCHARGE: 06/12/2020 CHIEF COMPLAINT/DISCHARGE DIAGNOSIS: Left hip fracture. HISTORY OF PRESENT ILLNESS: This is an 89-year-old male with a past medical history of low back pain, hypertension, benign neoplasm of the transverse colon, diabetes Type 2, GERD, DENISE who fell at home and presented to [facility] ED on 05/29/2020 with pain and difficulty walking. He was diagnosed with a left femur fracture and further workup was done to determine if the lesion was pathological. Nuclear bone scan on 05/30/2020 showed "mildly increased soft tissue uptake and bony uptake in the recently operated left hip No evidence to suggest skeletal metastatic disease." He was cleared by Medicine and underwent a left ORIF on 05/31/2020 with no postop complications with follow-up hip x-ray showing "status post pinning for slightly impacted subcapital fracture unchanged in position." He had some anemia following surgery with elevated fingersticks, demonstrated new mobility and ADL impairments and deemed medically appropriate for discharge to ARU on 06/02/2020. PAST MEDICAL HISTORY: As per HPI. HOSPITAL COURSE: Patient was admitted and enrolled in a comprehensive PT/OT program. He received 24 hour nursing supervision and weekly team meetings were held to discuss his progress. Patient was maintained on amlodipine for elevated blood pressures with hydralazine as back up, withholding parameters due to ANTOINETTE, which necessitated discontinuing his HEMANTH inhibitor and ARB. His kidney function returned to baseline and he was discharged home on amlodipine. Patient had relatively well-controlled fingersticks during his hospital course on Glipizide and was started on Flomax for suspected BPH with overall improvement in his urinary frequency. He had a trial of Gabapentin for pain, however had an episode of delirium and this was discontinued. He was also not prescribed opioids due to concern for hospital acquired delirium. He made steady gains in therapy, was deemed medically and functionally stable to return home. DISCHARGE MEDICATIONS: As per instructions. FUNCTIONAL HISTORY: On discharge, the patient was standby assist for functional transfers, bed mobility in ambulation and ADLs. Thank you for this referral.
--- NOTE | 2020-06-12 14:41 | IPNPDOC ---
Text Note Date of Service The patient was seen on 06/12/20. NOTE No any acute events overnight. Participating in therapy well, for dc Physical Exam GENERAL APPEARANCE: NAD HEENT: no scleral icterus, no JVD, EOMI CARDIOVASCULAR: S1S2 LUNGS: Diminished lung sounds bilaterally ABDOMEN: soft & not tender w palpitation MUSCULOSKELETAL: no cyanosis, no swelling, pulsation intact, tenderness over left hip INTEGUMENT: no generalized pallor NEUROLOGICAL: cranial nerve function from 2-12 intact intact, follows commands, speech not dysarthric Assessment and plan Mr. Dejesus was carrying a stack of dishes from his dining room into his kitchen to be washed when he lost his balance and fell to his right side. During the fall he landed on his left hip and does think he might of bumped his head but he did not lose consciousness. After the fall he had significant pain in his left hip/groin. He was brought to the emergency department for further evaluation and treatment. Orth team did surgery for left hip fracture on 05/31/20, patient was transferred to acute rehabilitation unit 1) Close left hip fracture: Orth team did surgery on 05/31/20, PT/OT. 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 CEA within normal limit, out patient primary onc followup 3) DENISE treated with BiPAP: Continuing treatment with BiPAP overnight 4) Type 2 diabetes: Diabetes diet, Insulin sliding scale 5) Hypertension: Continue amlo and hydralazile. HEMANTH inhibitors dced as Cr bumped a little. 6) Anemia of chronic diseases: Hemoglobin stable, Follow-up with PCP in the outpatient settings 7) Deconditioning: Secondary to hip fracture. PT/OT Disposition as per primary, possible dc today VS,Fishbone, I+O VS, Fishbone, I+O Vital Signs Date Time Temp Pulse Resp B/P (MAP) Pulse Ox O2 Delivery O2 Flow Rate FiO2 06/12/20 08:10 70 06/12/20 08:09 138/68 06/12/20 05:17 97.1 19 92 NIPPV (BIPAP/CPAP) I&O- Last 24 Hours up to 6 AM 06/12/20 06:00 Intake Total 660 ml Output Total 150 ml Balance 510 ml MICHELLE SCHMITT MD Jun 12, 2020 14:40
== END 2020-06-12 12:30 | disposition home health service (06) | DRG 560 ==
LOC: M PM&R 18:15
PROVIDERS: ADMIT Physical Medicine & Rehabilitation; ATTEND Physical Medicine & Rehabilitation
DX: S72.012D Unspecified intracapsular fracture of left femur, subsequent encounter for closed fracture with routine healing (principal); N17.9 Acute kidney failure, unspecified; M54.5 Low back pain; I10 Essential (primary) hypertension; E11.9 Type 2 diabetes mellitus without complications; K21.9 Gastro-esophageal reflux disease without esophagitis; G47.33 Obstructive sleep apnea (adult) (pediatric); F03.90 Unspecified dementia, unspecified severity, without behavioral disturbance, psychotic disturbance, mood disturbance, and anxiety; F32.9 Major depressive disorder, single episode, unspecified; W18.30XD Fall on same level, unspecified, subsequent encounter; R35.0 Frequency of micturition; Y92.009 Unspecified place in unspecified non-institutional (private) residence as the place of occurrence of the external cause; R41.0 Disorientation, unspecified; N40.1 Benign prostatic hyperplasia with lower urinary tract symptoms; D63.8 Anemia in other chronic diseases classified elsewhere; Z74.09 Other reduced mobility; Z74.1 Need for assistance with personal care; Z90.49 Acquired absence of other specified parts of digestive tract; Z79.82 Long term (current) use of aspirin; Z79.899 Other long term (current) drug therapy; Z88.5 Allergy status to narcotic agent; Z85.038 Personal history of other malignant neoplasm of large intestine

== ENCOUNTER 2021-05-15 21:50 | Inpatient (IN) | payer MEDICARE, OTHER ==
[~2021-05-15] VITALS: Ht 160 cm; Wt 75.0 kg
[~2021-05-15 21:50] MED LIST changes: +AMLO1TAB24 PO; +FLOM0.4C39 PO; +GLIP5TAB20 PO; +LOSA25TA13 PO; -LOSA25TA14 PO; +OMEP-173 PO; -OMEP-218 PO; +XARE10TA PO
[2021-05-15 23:23] LABS: BASO % 0.2 % (0.0-1.0); EOS # 0.1 10^3/uL (0.0-0.5); EOS % 1.1 % (0.0-3.0); HEMATOCRIT 38.2 % (42.0-52.0); HEMOGLOBIN 12.2 g/dl (13.5-17.5); LYMPH # 1.3 10^3/uL (1.5-5.0); LYMPH % 20.7 % (24.0-44.0); MEAN CORPUSCULAR HEMOGLOBIN 25.6 pg (27.0-33.0); MEAN CORPUSCULAR HGB CONC 31.9 g/dl (32.0-36.5); MEAN CORPUSCULAR VOLUME 80.1 fl (80.0-96.0); MONO # 0.6 10^3/uL (0.0-0.8); MONO % 9.5 % (2.0-8.0); NEUTROPHILS # 4.4 10^3/uL (1.5-8.5); PLATELET COUNT, AUTOMATED 150 10^3/uL (150-450); RED BLOOD COUNT 4.77 10^6/uL (4.30-6.10); WHITE BLOOD COUNT 6.4 10^3/uL (4.0-10.0)
[2021-05-15 23:55] LABS: CK-MB VALUE MASS 2.6 NG/ML (<3.6); MB/CK RELATIVE INDEX 2.48 (< OR =4)
[2021-05-15 23:57] LABS: ALBUMIN 3.4 GM/DL (3.2-5.2); ALT/SGPT 46 U/L (12-78); BILIRUBIN,DIRECT < 0.1 MG/DL (0.0-0.2); BILIRUBIN,TOTAL 0.5 MG/DL (0.2-1.0); BLOOD UREA NITROGEN 23 MG/DL (7-18); CALCIUM LEVEL 8.2 MG/DL (8.8-10.2); CARBON DIOXIDE LEVEL 27 MEQ/L (21-32); CHLORIDE LEVEL 106 MEQ/L (98-107); CREATININE FOR GFR 1.24 MG/DL (0.70-1.30); GLOMERULAR FILTRATION RATE 58.6 (>35); GLUCOSE, FASTING 120 MG/DL (70-100); POTASSIUM SERUM 4.8 MEQ/L (3.5-5.1); SODIUM LEVEL 139 MEQ/L (136-145); TOTAL PROTEIN 6.9 GM/DL (6.4-8.2)
[2021-05-16] MEDS ORDERED: OMEP20.6 PO (00:18)
[2021-05-16] MEDS ORDERED: GLIP10TA18 PO (00:18)
[2021-05-16] MEDS ORDERED: TAMS1CAP17 PO (00:18)
[2021-05-16] MEDS ORDERED: SERT25TA21 PO (00:18)
[2021-05-16] MEDS ORDERED: LOSA25TA13 PO (01:42)
[2021-05-16] MEDS ORDERED: HOME MED LIST COMPLETE! XX SCH (01:45)
[2021-05-16] MEDS ORDERED: GLUCOSE 4GM CHEW TABLET PO PRN (01:50)
[2021-05-16] MEDS ORDERED: ACETAMINOPHEN TAB 650MG DOSE (2X325MG) PO PRN (01:50)
[2021-05-16] MEDS ORDERED: GLUCAGON INJ 1MG VIAL SC PRN (01:50)
[2021-05-16] MEDS ORDERED: DEXTROSE 50% 50 ML SYRINGE IV PRN (01:50)
[2021-05-16] MEDS: HEPARIN SOD (PORCINE) 5000UNITS/ML 1ML VIAL/SYRINGE SC SCH ×3 (05:48→20:18)
[2021-05-16] MEDS: HumaLOG INSULIN (NovoLOG) PER UNIT SC SCH ×4 (07:30→20:17)
[2021-05-16] MEDS: DOCUSATE SODIUM 100MG CAPSULE PO SCH ×2 (09:00→20:18)
[2021-05-16 13:05] LABS: HEMATOCRIT 37.5 % (42.0-52.0); HEMOGLOBIN 12.3 g/dl (13.5-17.5); MEAN CORPUSCULAR HEMOGLOBIN 26.3 pg (27.0-33.0); MEAN CORPUSCULAR HGB CONC 32.8 g/dl (32.0-36.5); MEAN CORPUSCULAR VOLUME 80.3 fl (80.0-96.0); PLATELET COUNT, AUTOMATED 134 10^3/uL (150-450); RED BLOOD COUNT 4.67 10^6/uL (4.30-6.10); WHITE BLOOD COUNT 5.8 10^3/uL (4.0-10.0)
[2021-05-16 13:33] LABS: BLOOD UREA NITROGEN 20 MG/DL (7-18); CALCIUM LEVEL 8.5 MG/DL (8.8-10.2); CARBON DIOXIDE LEVEL 30 MEQ/L (21-32); CHLORIDE LEVEL 105 MEQ/L (98-107); CREATININE FOR GFR 1.17 MG/DL (0.70-1.30); GLOMERULAR FILTRATION RATE > 60.0 (>35); GLUCOSE, FASTING 129 MG/DL (70-100); MAGNESIUM LEVEL 1.8 MG/DL (1.8-2.4); SODIUM LEVEL 140 MEQ/L (136-145)
[2021-05-16 15:45] VITALS: BP 147/68
[2021-05-16 20:00] VITALS: BP 176/81
[2021-05-17] MEDS: HEPARIN SOD (PORCINE) 5000UNITS/ML 1ML VIAL/SYRINGE SC SCH ×3 (05:51→21:39)
[2021-05-17 06:00] VITALS: BP 164/89
[2021-05-17] MEDS: HumaLOG INSULIN (NovoLOG) PER UNIT SC SCH ×4 (07:30→20:49)
[2021-05-17 07:57] LABS: HEMATOCRIT 40.4 % (42.0-52.0); HEMOGLOBIN 12.9 g/dl (13.5-17.5); MEAN CORPUSCULAR HEMOGLOBIN 25.4 pg (27.0-33.0); MEAN CORPUSCULAR HGB CONC 31.9 g/dl (32.0-36.5); MEAN CORPUSCULAR VOLUME 79.7 fl (80.0-96.0); PLATELET COUNT, AUTOMATED 143 10^3/uL (150-450); RED BLOOD COUNT 5.07 10^6/uL (4.30-6.10); WHITE BLOOD COUNT 6.4 10^3/uL (4.0-10.0)
[2021-05-17 08:27] LABS: BLOOD UREA NITROGEN 17 MG/DL (7-18); CALCIUM LEVEL 8.7 MG/DL (8.8-10.2); CARBON DIOXIDE LEVEL 28 MEQ/L (21-32); CHLORIDE LEVEL 103 MEQ/L (98-107); CREATININE FOR GFR 1.17 MG/DL (0.70-1.30); GLOMERULAR FILTRATION RATE > 60.0 (>35); GLUCOSE, FASTING 101 MG/DL (70-100); SODIUM LEVEL 138 MEQ/L (136-145)
[2021-05-17] MEDS: DOCUSATE SODIUM 100MG CAPSULE PO SCH ×2 (10:00→21:00)
[2021-05-17 14:00] VITALS: BP 158/73
[2021-05-17] MEDS ORDERED: PILL CUTTER 1 EACH XX PRN (16:10)
[2021-05-17 20:00] VITALS: BP 145/78
[2021-05-18 04:00] VITALS: BP 150/71
[2021-05-18] MEDS: HEPARIN SOD (PORCINE) 5000UNITS/ML 1ML VIAL/SYRINGE SC SCH ×2 (06:12→13:18)
[2021-05-18 08:00] LABS: HEMOGLOBIN 12.6 g/dl (13.5-17.5); MEAN CORPUSCULAR HEMOGLOBIN 25.7 pg (27.0-33.0); MEAN CORPUSCULAR HGB CONC 32.3 g/dl (32.0-36.5); MEAN CORPUSCULAR VOLUME 79.6 fl (80.0-96.0); PLATELET COUNT, AUTOMATED 153 10^3/uL (150-450)
[2021-05-18 08:35] LABS: ALBUMIN 3.2 GM/DL (3.2-5.2); ALT/SGPT 45 U/L (12-78); BILIRUBIN,TOTAL 0.6 MG/DL (0.2-1.0); BLOOD UREA NITROGEN 26 MG/DL (7-18); CALCIUM LEVEL 8.8 MG/DL (8.8-10.2); CARBON DIOXIDE LEVEL 30 MEQ/L (21-32); CHLORIDE LEVEL 102 MEQ/L (98-107); CREATININE FOR GFR 1.13 MG/DL (0.70-1.30); GLOMERULAR FILTRATION RATE > 60.0 (>35); GLUCOSE, FASTING 113 MG/DL (70-100); NT-PRO BNP 132 PG/ML (<450); POTASSIUM SERUM 3.8 MEQ/L (3.5-5.1); SODIUM LEVEL 138 MEQ/L (136-145); TOTAL PROTEIN 6.8 GM/DL (6.4-8.2)
[2021-05-18] MEDS: DOCUSATE SODIUM 100MG CAPSULE PO SCH ×2 (08:57→20:06)
[2021-05-18] MEDS: TAMSULOSIN 0.4 MG CAP PO SCH (08:57)
[2021-05-18] MEDS: dexameTHASONE 20MG/5ML VIAL (J1100 PER 1MG) IV SCH (08:57)
[2021-05-18] MEDS: SERTRALINE HCL 25 MG TABLET PO SCH (08:57)
[2021-05-18] MEDS: OMEPRAZOLE 20MG CAP PO SCH (08:57)
[2021-05-18 09:01] VITALS: BP 129/73
[2021-05-18] MEDS: LOSARTAN 25 MG TAB PO SCH (09:01)
[2021-05-18] MEDS: HumaLOG INSULIN (NovoLOG) PER UNIT SC SCH ×4 (09:03→20:22)
[2021-05-18] MEDS ORDERED: REMDESIVIR 200 MG in NS 250 ML IV ONE (11:00)
[2021-05-18] MEDS ORDERED: SODIUM CHLORIDE 0.9% INJ 10 ML SYR IV ONE (12:00)
[2021-05-18 20:00] VITALS: BP 133/69
[2021-05-18] MEDS: ENOXAPARIN 40MG/0.4ML SYRINGE (J1650 PER 10MG) SC SCH (20:06)
[2021-05-19 06:16] LABS: HEMATOCRIT 36.6 % (42.0-52.0); HEMOGLOBIN 11.9 g/dl (13.5-17.5); MEAN CORPUSCULAR HEMOGLOBIN 25.8 pg (27.0-33.0); MEAN CORPUSCULAR HGB CONC 32.5 g/dl (32.0-36.5); MEAN CORPUSCULAR VOLUME 79.2 fl (80.0-96.0); PLATELET COUNT, AUTOMATED 166 10^3/uL (150-450); RED BLOOD COUNT 4.62 10^6/uL (4.30-6.10); WHITE BLOOD COUNT 7.2 10^3/uL (4.0-10.0)
[2021-05-19 06:39] VITALS: BP 137/69
[2021-05-19 06:39] LABS: ALBUMIN 3.2 GM/DL (3.2-5.2); BILIRUBIN,TOTAL 0.5 MG/DL (0.2-1.0); CALCIUM LEVEL 8.5 MG/DL (8.8-10.2); CREATININE FOR GFR 1.25 MG/DL (0.70-1.30); TOTAL PROTEIN 6.4 GM/DL (6.4-8.2)
[2021-05-19] MEDS: dexameTHASONE 20MG/5ML VIAL (J1100 PER 1MG) IV SCH (09:15)
[2021-05-19] MEDS: HumaLOG INSULIN (NovoLOG) PER UNIT SC SCH ×4 (09:15→21:00)
[2021-05-19] MEDS: LOSARTAN 25 MG TAB PO SCH (09:15)
[2021-05-19] MEDS: DOCUSATE SODIUM 100MG CAPSULE PO SCH ×2 (09:15→20:12)
[2021-05-19] MEDS: OMEPRAZOLE 20MG CAP PO SCH (09:15)
[2021-05-19] MEDS: ENOXAPARIN 40MG/0.4ML SYRINGE (J1650 PER 10MG) SC SCH ×2 (09:15→20:12)
[2021-05-19] MEDS: TAMSULOSIN 0.4 MG CAP PO SCH (09:42)
[2021-05-19] MEDS: SERTRALINE HCL 25 MG TABLET PO SCH (09:42)
[2021-05-19] MEDS ORDERED: REMDESIVIR 100 MG in NS 250 ML IV SCH (11:00)
[2021-05-19] MEDS ORDERED: SODIUM CHLORIDE 0.9% INJ 10 ML SYR IV SCH (12:00)
[2021-05-19 13:57] VITALS: BP 115/74
[2021-05-19 20:00] VITALS: BP 131/76
[2021-05-20 04:00] VITALS: BP 116/66
[2021-05-20 07:42] LABS: HEMATOCRIT 36.5 % (42.0-52.0); HEMOGLOBIN 11.7 g/dl (13.5-17.5); MEAN CORPUSCULAR HEMOGLOBIN 25.7 pg (27.0-33.0); MEAN CORPUSCULAR HGB CONC 32.1 g/dl (32.0-36.5); PLATELET COUNT, AUTOMATED 174 10^3/uL (150-450); RED BLOOD COUNT 4.56 10^6/uL (4.30-6.10); WHITE BLOOD COUNT 9.5 10^3/uL (4.0-10.0)
[2021-05-20 08:02] LABS: ALBUMIN 3.2 GM/DL (3.2-5.2); BILIRUBIN,TOTAL 0.5 MG/DL (0.2-1.0); CALCIUM LEVEL 8.6 MG/DL (8.8-10.2); CREATININE FOR GFR 1.22 MG/DL (0.70-1.30); GLOMERULAR FILTRATION RATE 59.7 (>35); TOTAL PROTEIN 6.7 GM/DL (6.4-8.2)
[2021-05-20] MEDS: OMEPRAZOLE 20MG CAP PO SCH (09:16)
[2021-05-20] MEDS: DOCUSATE SODIUM 100MG CAPSULE PO SCH ×2 (09:16→19:59)
[2021-05-20] MEDS: ENOXAPARIN 40MG/0.4ML SYRINGE (J1650 PER 10MG) SC SCH ×2 (09:16→21:00)
[2021-05-20] MEDS: SERTRALINE HCL 25 MG TABLET PO SCH (09:16)
[2021-05-20] MEDS: TAMSULOSIN 0.4 MG CAP PO SCH (09:17)
[2021-05-20] MEDS: LOSARTAN 25 MG TAB PO SCH (09:17)
[2021-05-20] MEDS: predniSONE 20 MG TAB PO SCH (10:01)
[2021-05-20] MEDS: HumaLOG INSULIN (NovoLOG) PER UNIT SC SCH ×4 (10:02→20:00)
[2021-05-20 13:38] VITALS: BP 130/86
[2021-05-20 22:00] VITALS: BP 119/83
[2021-05-21 06:00] VITALS: BP 110/70
[2021-05-21] MEDS: DOCUSATE SODIUM 100MG CAPSULE PO SCH (08:00)
[2021-05-21] MEDS: ENOXAPARIN 40MG/0.4ML SYRINGE (J1650 PER 10MG) SC SCH (08:00)
[2021-05-21] MEDS: TAMSULOSIN 0.4 MG CAP PO SCH (08:00)
[2021-05-21] MEDS: LOSARTAN 25 MG TAB PO SCH (08:00)
[2021-05-21] MEDS: SERTRALINE HCL 25 MG TABLET PO SCH (08:00)
[2021-05-21] MEDS: predniSONE 20 MG TAB PO SCH (08:00)
[2021-05-21] MEDS: OMEPRAZOLE 20MG CAP PO SCH (08:00)
[2021-05-21] MEDS: HumaLOG INSULIN (NovoLOG) PER UNIT SC SCH ×2 (08:12→12:14)
[2021-05-21 10:47] LABS: HEMATOCRIT 37.5 % (42.0-52.0); HEMOGLOBIN 12.2 g/dl (13.5-17.5); MEAN CORPUSCULAR HEMOGLOBIN 25.9 pg (27.0-33.0); MEAN CORPUSCULAR HGB CONC 32.5 g/dl (32.0-36.5); MEAN CORPUSCULAR VOLUME 79.6 fl (80.0-96.0); PLATELET COUNT, AUTOMATED 187 10^3/uL (150-450); RED BLOOD COUNT 4.71 10^6/uL (4.30-6.10); WHITE BLOOD COUNT 8.9 10^3/uL (4.0-10.0)
[2021-05-21 11:07] LABS: ALBUMIN 3.6 GM/DL (3.2-5.2); BILIRUBIN,TOTAL 0.6 MG/DL (0.2-1.0); CALCIUM LEVEL 8.7 MG/DL (8.8-10.2); CREATININE FOR GFR 1.42 MG/DL (0.70-1.30); GLOMERULAR FILTRATION RATE 50.1 (>35); POTASSIUM SERUM 3.8 MEQ/L (3.5-5.1); TOTAL PROTEIN 7.1 GM/DL (6.4-8.2)
[2021-05-21] MEDS ORDERED: PRED20TA PO (13:59)
[2021-05-21] MEDS ORDERED: NS 1,000 ML IV SCH (14:00)
[2021-05-22] MEDS ORDERED: ENOXAPARIN 30MG/0.3ML SYRINGE (J1650 PER 10MG) SC SCH (09:00)
[2021-05-22] MEDS ORDERED: predniSONE 20 MG TAB PO SCH (09:00)
== END 2021-05-21 15:43 | disposition home health service (06) | DRG 178 ==
LOC: M ED 21:50 → M ED INP 05-16 01:47 → ENRESERV 05-16 15:20 → M 4MAIN 05-16 15:45
PROVIDERS: ADMIT Internal Medicine; ATTEND Internal Medicine
DX: U07.1 COVID-19 (principal); F02.81 Dementia in other diseases classified elsewhere, unspecified severity, with behavioral disturbance; R53.1 Weakness; N18.30 Chronic kidney disease, stage 3 unspecified; E11.9 Type 2 diabetes mellitus without complications; I12.9 Hypertensive chronic kidney disease with stage 1 through stage 4 chronic kidney disease, or unspecified chronic kidney disease; G31.83 Neurocognitive disorder with Lewy bodies; K21.9 Gastro-esophageal reflux disease without esophagitis; F32.9 Major depressive disorder, single episode, unspecified; Z88.5 Allergy status to narcotic agent; Z79.899 Other long term (current) drug therapy

== ENCOUNTER 2021-08-17 17:26 | Emergency (ER) | payer MEDICARE, OTHER ==
[~2021-08-17] VITALS: Ht 160 cm; Wt 72.7 kg
[~2021-08-17 17:26] MED LIST changes: +OMEP20.6 PO; +PRED20TA PO; +SERT25TA21 PO; +TAMS1CAP17 PO
[2021-08-17] MEDS: fentaNYL 100 MCG/2 ML INJECTION IV PRN ×2 (18:42→20:14)
[2021-08-17 19:28] LABS: BASO % 0.4 % (0.0-1.0); EOS # 0.3 10^3/uL (0.0-0.5); EOS % 3.4 % (0.0-3.0); HEMATOCRIT 40.1 % (42.0-52.0); HEMOGLOBIN 13.2 g/dl (13.5-17.5); LYMPH # 2.1 10^3/uL (1.5-5.0); LYMPH % 27.9 % (24.0-44.0); MEAN CORPUSCULAR HEMOGLOBIN 27.4 pg (27.0-33.0); MEAN CORPUSCULAR HGB CONC 32.9 g/dl (32.0-36.5); MEAN CORPUSCULAR VOLUME 83.2 fl (80.0-96.0); MONO # 0.5 10^3/uL (0.0-0.8); NEUTROPHILS # 4.5 10^3/uL (1.5-8.5); NEUTROPHILS % 60.8 % (36.0-66.0); PLATELET COUNT, AUTOMATED 184 10^3/uL (150-450); RED BLOOD COUNT 4.82 10^6/uL (4.30-6.10); WHITE BLOOD COUNT 7.4 10^3/uL (4.0-10.0)
[2021-08-17] MEDS ORDERED: OXYCODONE/APAP 5MG/325MG(BULK FOR ED) 1 TABLET PO ONE (20:15)
[2021-08-17] MEDS ORDERED: PERC5TAB12 PO (20:30)
[2021-08-17 21:16] VITALS: BP 158/74
== END 2021-08-17 21:26 | disposition home or self-care (01) ==
LOC: M ED 17:26 → EDBD 17:26 → M ED 21:26
DX: M25.511 Pain in right shoulder (principal); W01.0XXA Fall on same level from slipping, tripping and stumbling without subsequent striking against object, initial encounter; Y92.099 Unspecified place in other non-institutional residence as the place of occurrence of the external cause; Y93.9 Activity, unspecified; Y99.9 Unspecified external cause status; I10 Essential (primary) hypertension; E11.9 Type 2 diabetes mellitus without complications; N18.30 Chronic kidney disease, stage 3 unspecified; M19.011 Primary osteoarthritis, right shoulder; R93.7 Abnormal findings on diagnostic imaging of other parts of musculoskeletal system; Z79.84 Long term (current) use of oral hypoglycemic drugs; Z79.899 Other long term (current) drug therapy; Z88.5 Allergy status to narcotic agent
CPT/HCPCS: 73030; 73200; 80047; 85025; 96374; 96376; 99284; J3010

== ENCOUNTER → 2022-03-08 | Outpatient (REF) | payer MEDICARE, OTHER ==
[~2022-03-08] MED LIST changes: +PERC5TAB12 PO
== END ==
LOC: M LAB REF 16:45
PROVIDERS: ATTEND Internal Medicine
DX: G60.9 Hereditary and idiopathic neuropathy, unspecified (principal)